=== PATIENT | female | born 1960 | race Caucasian/White ===

== ENCOUNTER → 2017-01-23 | Outpatient (CLI) | payer OTHER | END | disposition home or self-care (01) | LOC: C.PAPS 14:16 | PROVIDERS: ATTEND Family Medicine | DX: Z12.4 Encounter for screening for malignant neoplasm of cervix (principal) ==

== ENCOUNTER → 2017-01-30 | Outpatient (CLI) | payer OTHER ==
--- NOTE | 2017-02-06 12:52 | MAMMOGRAPHY REPORT ---
BILATERAL DIGITAL SCREENING MAMMOGRAM TOMOSYNTHESIS WITH CAD: 01/30/2017 CLINICAL HISTORY: Routine screening. Patient has no complaints. TECHNIQUE: Breast tomosynthesis in addition to standard 2D mammography was performed. Current study was also evaluated with a Computer Aided Detection (CAD) system. Bilateral CC and MLO 2-D and adriana synthesis images were obtained. COMPARISON: No prior exams were available for comparison. BREAST COMPOSITION: The tissue of both breasts is heterogeneously dense, which may obscure small ma sses. FINDINGS: No suspicious masses, calcifications, or areas of architectural distortion are noted in e ither breast. There has been no significant interval change compared to prior exams. Scattered bilat eral benign-appearing calcifications are not significantly changed. Note that the patient returned for a repeat right CC 2-D view on 02/05/2017 due to motion artifact on the initial view. IMPRESSION: ACR BI-RADS CATEGORY 2: BENIGN There is no mammographic evidence of malignancy. A 1 year screening mammogram is recommended. The p atient will receive written notification of the results. Approximately 10% of breast cancers are not detected with mammography. A negative mammographic repor t should not delay biopsy if a clinically suggestive mass is present. Sofía Jose M.D. ah/:02/05/2017 15:03:00 Medical Housekeeper: Genny PIERSON(Maryjane)(Francheska)(MARIANO), [facility] letter sent: Normal 1/2 BI-RADS Code: ACR BI-RADS Category 2: Benign
== END | disposition home or self-care (01) ==
LOC: C.MAMM 10:19
PROVIDERS: ATTEND Family Medicine
DX: Z12.31 Encounter for screening mammogram for malignant neoplasm of breast (principal)

== ENCOUNTER 2017-07-13 10:44 | Observation (INO) | payer BC, OTHER ==
[~2017-07-13] VITALS: Ht 162.6 cm; Wt 57.5 kg
--- NOTE | 2017-07-13 11:51 | DIAGNOSTIC IMAGING REPORT ---
CHEST ONE VIEW PORTABLE HISTORY: 57 years-old Female cp acute atypical chest pain COMPARISON: None available TECHNIQUE: Portable upright AP view the chest FINDINGS: Cardiomediastinal and hilar silhouettes are within normal limits. No pneumothorax, pleural effusion, or overt pulmonary edema. Subsegmental left basilar opacities are noted. Lungs are mildly hyperinflated. Atherosclerosis of the aorta. Bones are grossly intact. IMPRESSION: Subsegmental left basilar opacities suggest atelectasis or scarring. No acute cardiopulmonary process. The above report was generated using voice recognition software. It may contain grammatical, syntax or spelling errors. Electronically signed by: Nikolai Diaz M.D. 07/13/2017 11:50 AM Dictated Date/Time: 07/13/2017 11:49 AM
[2017-07-13 11:55] LABS: BASO % 0.4 %; BASO ABS # 0.02 K/uL (0-0.2); COMPLETE YES; EOS % 4.4 %; HEMATOCRIT 37.6 % (37-47); IG% 0.2 %; LYMPH % 14.6 %; LYMPH ABS # 0.69 K/uL (1.2-3.4); MEAN CORPUSCULAR HEMOGLOBIN 29.9 pg (25-34); MEAN CORPUSCULAR HGB CONC 34.3 g/dl (32-36); MEAN PLATELET VOLUME 10.2 fL (7.4-10.4); MONO % 10.6 %; NEUT % 69.8 %; PLATELET COUNT 207 K/uL (130-400); RED BLOOD COUNT 4.32 M/uL (4.2-5.4); WHITE BLOOD COUNT 4.73 K/uL (4.8-10.8)
[2017-07-13 12:05] LABS: PARTIAL THROMBOPLASTIN RATIO 1.3; PROTHROMBIN TIME (PATIENT) 10.6 SECONDS (9.0-12.0)
[2017-07-13 12:13] LABS: BUN/CREATININE RATIO 11.2 (10-20); CALCIUM 8.9 mg/dl (8.5-10.1); CREATININE 0.73 mg/dl (0.60-1.20); POTASSIUM 3.1 mmol/L (3.5-5.1)
[2017-07-13] MEDS ORDERED: POTASSIUM CHLORIDE 10 MEQ TABCR PO STA (12:14)
[2017-07-13] MEDS ORDERED: MAGNESIUM HYDROXIDE SUSP 30 ML UDC PO PRN (12:45)
[2017-07-13] MEDS ORDERED: ONDANSETRON INJ 2 MG/ML 2 ML VIAL IV PRN (12:45)
[2017-07-13] MEDS ORDERED: ALUMINUM/MAGNESIUM/SIMETH (MAALOX MAX) 30 ML UDC PO PRN (12:45)
[2017-07-13] MEDS ORDERED: POLYETHYLENE (MIRALAX) 17 GM PACK PO PRN (12:45)
[2017-07-13] MEDS ORDERED: ACETAMINOPHEN 325 MG TAB PO PRN (12:45)
--- NOTE | 2017-07-13 13:19 | History and Physical ---
History & Physical Date of Service Jul 13, 2017. History & Physical obs #[id number]
[2017-07-13] MEDS ORDERED: LIDOCAINE HCL 2% VISC SOLN 20 ML UDC PO ONE (13:30)
[2017-07-13] MEDS ORDERED: ALUMINUM/MAGNESIUM SUSP 30 ML UDC PO ONE (13:30)
[2017-07-13] MEDS ORDERED: RANITIDINE HCL 150 MG TAB PO ONE (13:30)
--- NOTE | 2017-07-13 13:36 | HISTORY & PHYSICAL EXAMINATION ---
DATE OF ADMISSION: 07/13/2017 CHIEF COMPLAINT: Chest pain. HISTORY OF PRESENT ILLNESS: The patient is a very pleasant 57-year-old female who notes she has had chest pain this morning. She notes most proximally that she woke up about 5:30, she had a fever. She had some epigastric discomfort, pressure, felt like indigestion, but she also felt a little in her left jaw, although she notes periodically through the years she has had left jaw pain off and on. However, it got her attention enough that she felt like she should come to the ER for further evaluation. She is pain free now. It is not entirely clear what took the pain away. She notes most relevantly that she is actually since Thursday felt flu-like with temps off and on up to about 102. She has been taking Tylenol all weekend, some chills, some headaches, some sinus pressure and then about 3:30 this morning she felt like her fever finally broke and she was feeling better but again she woke up about 5:30 febrile again and with chest pain again. She denies any new dyspnea on exertion. On directed questioning, she thinks back and vaguely but then positively relates slightly new dyspnea on exertion, but she has actually noted it for a few years. It is probably improving as she has had intentional weight loss and certainly she has had no new dyspnea on exertion, worsening dyspnea on exertion or fatigue. REVIEW OF SYSTEMS: Otherwise, negative except for as above. PAST MEDICAL HISTORY: None. MEDICATIONS: None. No herbals, no supplements. PAST SURGICAL HISTORY: Includes tubal in 1998. SOCIAL HISTORY: No tobacco. No significant alcohol, no drugs. 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 FAMILY HISTORY: Includes dad with peripheral vascular disease, stroke, black lung and hypertension. The earliest manifestation of his vascular disease she remembers is seen in his late 60s. Mom had diabetes, hypertension and coronary artery disease, noting that her first manifestation of her vascular disease was probably in her early 70s. ALLERGIES: None. PHYSICAL EXAMINATION: VITAL SIGNS: Temperature 36.8, pulse 94, respiratory rate 18, blood pressure 128/86, 97% on room air. GENERAL: She is awake, alert, oriented x3, pleasant, fatigued appearing but in no acute distress. HEENT: Normocephalic, atraumatic. Mucous membranes are moist. CARDIOVASCULAR: Regular without rubs, murmurs, or gallops. LUNGS: Clear to auscultation bilaterally. No rales, rhonchi, or wheezes with good effort. ABDOMEN: Soft, nondistended, nontender, no masses or organomegaly. EXTREMITIES: Without cyanosis, clubbing or edema. No calf tenderness. SKIN: Shows no rashes, no pallor or icterus. NEUROLOGIC: Shows cranial nerves II-XII to be grossly intact. Gross motor and sensory are intact. MUSCULOSKELETAL: Reveals no gross lesions. MENTAL STATE: Shows good recent and remote recall. Normal mood and affect. Good judgment and insight. LABORATORIES AND DIAGNOSTICS: Chest x-ray is clear. EKG is sinus rhythm without any significant ST changes. CBC shows a white count of 4.73, hemoglobin 12.9, platelets of 207. Basic metabolic panel with sodium 134, potassium 3.1, chloride 99, CO2 25, BUN 8, creatinine 0.73, calcium 8.9, glucose 91, troponin of less than 0.030. PT of 10.6, PTT of 35.0. ASSESSMENT AND PLAN: 1. Chest pain. This seems extremely likely to be indigestion. She carries essentially no cardiac risk factors, has very atypical symptoms and no exertional symptoms. However, she certainly very concerned about this and the ER felt that maybe she had a degree of ST changes. I will see what they are talking about with that, however, it is certainly not of significance, it is not a millimeter and more than anything it appears that her baseline drops before her QRS making the ST segment level. That said, because of the concern, we will observe her on telemetry, rule out myocardial infraction with serial cardiac enzymes x3 and check a stress echo in the morning provided her enzymes are negative. 2. Indigestion. This appears to be most likely what is going on, we will give her Maalox, viscous lidocaine and Zantac and then follow her closely. 3. Hyponatremia, hypokalemia. This is due to her poor p.o. intake due to her viral illness over the last several days. She has been supplemented with potassium. We will follow her clinically. She can have outpatient labs in the near future to follow up on her electrolytes. 4. Febrile illness, certainly because some influenza in the area. We will check a flu swab more for surveillance than anything. 5. Deep venous thrombosis prophylaxis, ambulation. MTDD
[2017-07-13 13:45] VITALS: O2SAT 97; Ht 162.6 cm; Wt 57.5 kg
[2017-07-13 14:14] VITALS: BP 117/82; PULSE 86; TEMP 36.7; O2SAT 97
[2017-07-13] MEDS ORDERED: IV FLUIDS COMPLETED PRN (14:30)
[2017-07-13 16:00] VITALS: O2SAT 98
--- NOTE | 2017-07-13 17:21 | EMERGENCY ROOM VISIT NOTE ---
History Report prepared by Alexys: Pola Ramirez Under the Supervision of: Dr. Del Bettencourt M.D. First contact with patient: 11:17 Chief Complaint: FLU LIKE SX Stated Complaint: CHEST PAIN,HEAD PAIN,JAW PAIN History of Present Illness The patient is a 57 year old female who presents to the Emergency Room with complaints of an episode of chest pressure that occurred around 6 hours ago. She says that she woke up with the pressure, and she also noticed left jaw pressure at the same time. The patient states that both her chest and left jaw pressure only lasted a few minutes. The patient adds that the discomfort radiated a bit to her left arm. She notes that the discomfort felt like indigestion but she had not recently eaten anything. The patient adds that for the past few days she has had flu-like symptoms, with a fever, chills, and headache. She says that her flu-like symptoms have been getting better, but she felt like she was getting a fever again around 0530 this morning. She notes that she saw Dr. Hendrickson (her family doctor) prior to arrival and was told that her temperature was 98.8. The patient was given 4 baby aspirin in the office. She had an EKG there which revealed some abnormalities so she was sent here for further evaluation. The patient says that she had a bit of the left jaw pressure in the office, but she has no discomfort or pain currently. She denies any sinus congestion, shortness of breath, sweating, nausea, lightheadedness, vomiting, diarrhea, leg swelling, or leg pain. The patient notes that she has no chronic medical conditions, but does have a family history of hypertension and heart disease. She says that both her parents had heart attacks in their 70s. The patient is a non-smoker. Source of History: patient Onset: 6 hours ago Position: chest Symptom Intensity: episode lasted a few minutes Quality: pressure Timing: other (episode) Associated Symptoms: + fevers, + chills, + headache, No SOB, No nausea, No vomiting, No diarrhea Note: Associated symptoms: Recent flu-like symptoms, which are resolving. Pressure radiated to left jaw and left arm. Denies sinus congestion, lightheadedness, sweating, leg swelling or leg pain. Review of Systems See HPI for pertinent positives & negatives. A total of 10 systems reviewed and were otherwise negative. Past Medical & Surgical Medical Problems: (1) Chest pain (2) No chronic diseases present Family History Diabetes mellitus FHx: gallbladder disease Heart disease Hypertension Kidney disease Lung disease Stroke Social History Smoking Status: Never Smoker Smokeless Tobacco Use: No Alcohol Use: none Occupation Status: unemployed Current/Historical Medications No Active Prescriptions or Reported Meds Allergies Coded Allergies: No Known Allergies (Unverified , 07/13/17) Physical Exam Vital Signs Date Time Temp Pulse Resp B/P (MAP) Pulse Ox O2 Delivery O2 Flow Rate FiO2 07/13/17 13:15 84 16 123/83 98 Room Air 07/13/17 12:12 86 07/13/17 12:06 85 16 112/77 96 Room Air 07/13/17 10:48 36.8 94 18 128/86 97 Room Air Physical Exam Constitutional: Vital signs reviewed. Eyes: Pupils are equal round reactive to light. Conjunctiva are noninjected. ENT: Pharynx is clear without erythema or exudate. Mucous membranes are moist. Neck supple without meningeal signs. Respiratory: Clear to auscultation bilaterally. Breath sounds are equal bilaterally. Cardiovascular: Regular rate and rhythm. No rubs or gallops. GI: Soft, nondistended and nontender. Bowel sounds are present. Musculoskeletal: No peripheral edema. No lower extremity tenderness. Integumentary: No cyanosis. Neurological: The patient is awake and alert. No focal deficits. Psychiatric: Normal affect. Medical Decision & Procedures ER Provider Diagnostic Interpretation: X-ray results as stated below per interpretation by me and the radiologist: CHEST ONE VIEW PORTABLE HISTORY: 57 years-old Female cp acute atypical chest pain COMPARISON: None available TECHNIQUE: Portable upright AP view the chest FINDINGS: Cardiomediastinal and hilar silhouettes are within normal limits. No pneumothorax, pleural effusion, or overt pulmonary edema. Subsegmental left basilar opacities are noted. Lungs are mildly hyperinflated. Atherosclerosis of the aorta. Bones are grossly intact. IMPRESSION: Subsegmental left basilar opacities suggest atelectasis or scarring. No acute cardiopulmonary process. The above report was generated using voice recognition software. It may contain grammatical, syntax or spelling errors. Electronically signed by: Nikolai Diaz M.D. 07/13/2017 11:50 AM Dictated Date/Time: 07/13/2017 11:49 AM Laboratory Results 07/13/17 11:40 Red Blood Count 4.32, Mean Corpuscular Volume 87.0, Mean Corpuscular Hemoglobin 29.9, Mean Corpuscular Hemoglobin Concent 34.3, Mean Platelet Volume 10.2, Neutrophils (%) (Auto) 69.8, Lymphocytes (%) (Auto) 14.6, Monocytes (%) (Auto) 10.6, Eosinophils (%) (Auto) 4.4, Basophils (%) (Auto) 0.4, Neutrophils # (Auto ) 3.30, Lymphocytes # (Auto) 0.69, Monocytes # (Auto) 0.50, Eosinophils # (Auto ) 0.21, Basophils # (Auto) 0.02 07/13/17 11:40 Test 07/13/17 11:40 07/13/17 11:45 White Blood Count 4.73 K/uL (4.8-10.8) Red Blood Count 4.32 M/uL (4.2-5.4) Hemoglobin 12.9 g/dL (12.0-16.0) Hematocrit 37.6 % (37-47) Mean Corpuscular Volume 87.0 fL (80-100) Mean Corpuscular Hemoglobin 29.9 pg (25-34) Mean Corpuscular Hemoglobin Concent 34.3 g/dl (32-36) Platelet Count 207 K/uL (130-400) Mean Platelet Volume 10.2 fL (7.4-10.4) Neutrophils (%) (Auto) 69.8 % Lymphocytes (%) (Auto) 14.6 % Monocytes (%) (Auto) 10.6 % Eosinophils (%) (Auto) 4.4 % Basophils (%) (Auto) 0.4 % Neutrophils # (Auto) 3.30 K/uL (1.4-6.5) Lymphocytes # (Auto) 0.69 K/uL (1.2-3.4) Monocytes # (Auto) 0.50 K/uL (0.11-0.59) Eosinophils # (Auto) 0.21 K/uL (0-0.5) Basophils # (Auto) 0.02 K/uL (0-0.2) RDW Standard Deviation 43.8 fL (36.4-46.3) RDW Coefficient of Variation 13.8 % (11.5-14.5) Immature Granulocyte % (Auto) 0.2 % Immature Granulocyte # (Auto) 0.01 K/uL (0.00-0.02) Prothrombin Time 10.6 SECONDS (9.0-12.0) Prothromb Time International Ratio 1.0 (0.9-1.1) Activated Partial Thromboplast Time 35.0 SECONDS (21.0-31.0) Partial Thromboplastin Ratio 1.3 Anion Gap 10.0 mmol/L (3-11) Est Creatinine Clear Calc Drug Dose 72.6 ml/min Estimated GFR () 105.2 Estimated GFR (Non- 90.8 BUN/Creatinine Ratio 11.2 (10-20) Calcium Level 8.9 mg/dl (8.5-10.1) Bedside Troponin I < 0.030 ng/ml (0-0.045) Laboratory results as reviewed by me. Medications Administered Medications (Trade) Dose Ordered Sig/Angel Route Start Time Stop Time Status Last Admin Dose Admin Potassium Chloride (Klor-Con M10) 40 meq NOW STAT PO 07/13/17 12:14 07/13/17 12:15 DC 07/13/17 12:44 40 MEQ ECG Indication: chest pain Rate (beats per minute): 85 Rhythm: normal sinus Findings: ST depression (V4-V6), no ectopy ED Course 1120: The patient was evaluated in room C3. A complete history and physical exam was performed. 1214: Ordered Klor-Con M10 40 meq PO. 1221: I reevaluated the patient and she is resting comfortably. I recommended hospitalization, and she agrees with that plan. The patient verbally expressed understanding and agreement of the treatment plan. The patient will be evaluated for further treatment. 1222: I spoke with Dr. Suarez - [facility] federal mediator. We discussed the patient and her results. He will evaluate the patient for further treatment. Medical Decision This is a 57-year-old female who presents with chest pain rating to her jaw and arm. Differential diagnosis includes unstable angina, SC, pleurisy, GERD, anxiety, pneumonia, pericarditis, myocarditis. I did perform a limited focused review of portions of the patient's old chart on the electronic medical record. The patient has had no recent pertinent visits to this hospital. I did evaluate the patient as noted above. The patient is here because she had an episode of chest discomfort which she describes as a pressure radiating to her jaw and arm. She had an EKG at her doctor's office which showed some ST depressions. She was sent here for further evaluation. She has been having some cold symptoms recently which have improved significantly. IV access was established. The patient was placed on a continuous cardiac tech. I did order and personally review the patient's 12-lead EKG and chest x-ray as described above. Her twelve-lead EKG does demonstrate ST depressions in leads V4 to V6. Patient is currently not having any chest discomfort. She did receive aspirin at her doctor's office. I did order and review the patient's blood work as noted in the electronic medical record. Troponin is negative. She does have hypokalemia. She was given oral potassium. I did reevaluate the patient. She denies having any discomfort at this time. I did recommend hospitalization because of her abnormal EKG and chest discomfort. I did discuss case with the hospitalist and employment case manager. Medication Reconcilliation Current Medication List: was personally reviewed by me Blood Pressure Screening Patient's blood pressure: Elevated blood pressure Consults Time Called: 1220 Consulting Physician: Dr. Daniela RONQUILLO federal mediator Returned Call: [address] Daniela RONQUILLO federal mediator. We discussed the patient and her results. He will evaluate the patient for further treatment. Impression Primary Impression: Acute chest pain Additional Impressions: Abnormal EKG Flu-like symptoms Hypokalemia Scribe Attestation The scribe's documentation has been prepared under my direct and personally reviewed by me in its entirety. I confirm that the note above accurately reflects all work, treatment, procedures, and medical decision making performed by me. Departure Information Dispostion Being Evaluated By Hospitalist Prescriptions No Active Prescriptions or Reported Meds Referrals Kathryn Hendrickson D.O. (PCP) Patient Instructions My [facility] Problem Qualifiers
[2017-07-13 19:30] VITALS: BP 113/88; PULSE 88; TEMP 36.7; O2SAT 95
[2017-07-13 19:45] LABS: CKMB/CK RATIO 1.4 (0-3.0)
[2017-07-13] MEDS: RANITIDINE HCL 150 MG TAB PO SCH (20:23)
[2017-07-13 23:37] VITALS: BP 114/80; PULSE 86; TEMP 37; O2SAT 96
[2017-07-14 03:21] LABS: BUN/CREATININE RATIO 17.2 (10-20); CALCIUM 8.8 mg/dl (8.5-10.1); CARBON DIOXIDE 27 mmol/L (21-32); CHLORIDE 105 mmol/L (98-107); CHOLESTEROL 151 mg/dl (0-200); CHOLESTEROL/HDL RATIO 3.1; CREATININE 0.83 mg/dl (0.60-1.20); GLUCOSE 89 mg/dl (70-99); HDL CHOLESTEROL 49 mg/dl; LDL CHOLESTEROL CALCULATED 74 mg/dl; POTASSIUM 4.2 mmol/L (3.5-5.1); SODIUM 139 mmol/L (136-145); TRIGLYCERIDES 139 mg/dl (0-150); VERY LOW DENSITY LIPOPROT CALC 28 mg/dl
[2017-07-14 03:34] LABS: BLOOD UREA NITROGEN 14 mg/dl (7-18)
[2017-07-14 03:40] VITALS: BP 119/79; PULSE 92; TEMP 36.8; O2SAT 95
[2017-07-14 07:57] VITALS: BP 115/77; PULSE 88; TEMP 36.8; O2SAT 95
[2017-07-14 08:00] VITALS: O2SAT 95
[2017-07-14] MEDS: RANITIDINE HCL 150 MG TAB PO SCH (10:32)
--- NOTE | 2017-07-14 10:42 | EXERCISE STRESS ECHO ---
*NOTICE TO RECEIVING REPUBLICAN AGENCY This information is strictly Confidential and protected under [place] law. [place] law prohibits you from making any further disclosure of this information unless further disclosure is expressly permitted by the written consent of the person to whom it pertains or is authorized by law. A general authorization for the release of medical or other information is not sufficient for this purpose. Hospital accepts no responsibility if the information is made available to any other person, INCLUDING THE PATIENT. Interpretation Summary * Name: ELTON LAINEZ Study Date: 07/14/2017 08:52 AM BP: 117/83 mmHg * Patient Location: 209 HR: 88 * : 1960 (M/d/yyyy) Gender: Female Height: 64 in * Age: 57 yrs Ethnicity: [place] Weight: 131 lb * Ordering Physician: Jaquan Suarez * Referring Physician: Kathryn Hendrickson D.O. * Performed By: Kanwal Gonzalez RDCS * * Reason For Study: CHEST PAIN * BSA: 1.6 m2 * -- Conclusions -- * Stress Echo: * 1. Negative stress echo for ischemia at 91 % MPHR. * 2. Negative exercise ECG for ischemia at 91 % MPHR. * 3. Appropriate blood pressure response to exercise. * 4. No arrhythmia. * 5. Study terminated due to hip pain. No chest pain reported. * 6. Fair exercise tolerance. * Echo: * 1. Normal left ventricular size and systolic function. EF 55-60%. No regional wall motion abnormalities. No left ventricular hypertrophy. Type 1 diastolic dysfunction. * 2. No significant valvular abnormalities. * 3. Normal estimated right ventricular systolic pressure; 22mmHg. * 4. No prior study available for comparison. Procedure Details * ECHOEX, CPT #[id number] Left Ventricle * The left ventricle is normal in size. * There is normal left ventricular wall thickness. * Left ventricular systolic function is normal. * The left ventricular ejection fraction increases normally with stress. The left ventricular end-systolic cavity size reduces post-stress (normal response). The left ventricular wall motion with stress is normal. * Resting wall motion: Normal. Stress wall motion: Appropriate increase in Left ventricular systolic function and decrease in cavity size. No stress induced segmental wall motion abnormalities. Right Ventricle * The right ventricle is normal in size and function. * The right ventricular systolic function is normal as assessed by tricuspid annular plane systolic excursion (TAPSE) (normal >1.5 cm). Atria * The left atrial size is normal. * Right atrial size is normal. * There is no evidence of atrial septal defect, but resolution does not allow assessment for a patent foramen ovale. Mitral Valve * The mitral valve leaflets appear normal. There is no evidence of stenosis, fluttering, or prolapse. * There is trace mitral regurgitation. Tricuspid Valve * The tricuspid valve is not well visualized, but is grossly normal. * There is no tricuspid stenosis. * There is trace tricuspid regurgitation. Aortic Valve * The aortic valve is trileaflet. * No hemodynamically significant valvular aortic stenosis. * No aortic regurgitation is present. Pulmonic Valve * The pulmonary valve is inadequately visualized, but the Doppler data is adequate for interpretation. * Trace pulmonic valvular regurgitation. Great Vessels * The aortic root is normal size. * Aortic arch of normal dimension. * Normal IVC size and inspiratory collapse. Pericardium * Trace pericardial effusion. Stress Parameters * NSR at 91 bpm. * Stress ECG: No ST changes. No arrhythmias. * Rest heart rate was '88' BPM. * Rest blood pressure was '117/83' * Maximum heart rate achieved was 148 bpm. * Maximum heart rate was 91 % of maximum age-predicted heart rate. * Maximum blood pressure was '170/84' * Total exercise time was '6:25' * Maximum exercise MET level achieved was '7.60' METS * Maximum treadmill speed was '3.40' miles per hour. * Maximum treadmill elevation was '14.00'% grade. * Exercise was terminated due to 'hip pain' * Normal blood pressure response to exercise. MMode 2D Measurements and Calculations IVSd 0.97 cm IVSs 1.5 cm LVIDd 3.9 cm LVIDs 2.5 cm LVPWd 0.98 cm LVPWs 1.4 cm IVS/LVPW 0.98 FS 37.2 % EDV(Teich) 67.8 ml ESV(Teich) 21.9 ml EF(Teich) 67.8 % EDV(cubed) 61.5 ml ESV(cubed) 15.2 ml EF(cubed) 75.2 % % IVS thick 54.6 % % LVPW thick 38.9 % LV mass(C)d 119.9 grams LV mass(C)dI 73.4 grams/m\S\2 LV mass(C)s 114.4 grams LV mass(C)sI 70.0 grams/m\S\2 SV(Teich) 46.0 ml SI(Teich) 28.1 ml/m\S\2 SV(cubed) 46.3 ml SI(cubed) 28.3 ml/m\S\2 Ao root diam 2.5 cm Ao root area 4.7 cm\S\2 LA dimension 2.5 cm LA/Ao 1.0 LVAd ap4 23.4 cm\S\2 LVLd ap4 7.0 cm EDV(MOD-sp4) 64.9 ml EDV(sp4-el) 66.4 ml LVAs ap4 14.2 cm\S\2 LVLs ap4 6.1 cm ESV(MOD-sp4) 29.8 ml ESV(sp4-el) 28.2 ml EF(MOD-sp4) 54.1 % EF(sp4-el) 57.5 % SV(MOD-sp4) 35.1 ml SI(MOD-sp4) 21.5 ml/m\S\2 SV(sp4-el) 38.1 ml SI(sp4-el) 23.3 ml/m\S\2 Doppler Measurements and Calculations MV E max guadalupe 63.8 cm/sec MV A max guadalupe 76.6 cm/sec MV E/A 0.83 MV dec time 0.13 sec Ao V2 max 121.7 cm/sec Ao max PG 5.9 mmHg Ao max PG (full) 0.79 mmHg LV V1 max PG 5.1 mmHg LV V1 max 113.2 cm/sec TV E max guadalupe 56.6 cm/sec TR max guadalupe 215.6 cm/sec RVSP(TR) 21.6 mmHg RAP systole 3.0 mmHg
--- NOTE | 2017-07-14 11:27 | Discharge Instructions ---
Discharge Instructions Date of Service Jul 14, 2017. Admission Reason for Admission: Chest Pain Discharge Discharge Diagnosis / Problem: Chest pain, non-cardiac Discharge Goals Goal(s): Decrease discomfort, Improve function Activity Recommendations Activity Limitations: resume your previous activity . Instructions / Follow-Up Instructions / Follow-Up Medications: no new medications Can use Tums as needed for any heartburn or indigestion. If heartburn becomes a regular occurrence please talk with your primary care doctor about PPI FOLLOW UP - no need for specific follow up since your testing was negative, as mentioned above, if your indigestion becomes more frequent then schedule an appointment Current Hospital Diet Patient's current hospital diet: Regular Diet Discharge Diet Recommended Diet: Regular Diet Pending Studies Studies pending at discharge: no Laboratory Results Lipid Panel Test 07/14/17 02:43 Range/Units Triglycerides Level 139 0-150 mg/dl Cholesterol Level 151 0-200 mg/dl HDL Cholesterol 49 mg/dl Cholesterol/HDL Ratio 3.1 LDL Cholesterol, Calculated 74 mg/dl Medical Emergencies . Who to Call and When: Medical Emergencies: If at any time you feel your situation is an emergency, please call 911 immediately. . Non-Emergent Contact Non-Emergency issues call your: Primary Care Provider if indigestion continues . . "Provider Documentation" section prepared by Jacob Mathis. . VTE Core Measure Inpt VTE Proph given/why not?: Treatment not indicated [place] Drug Monitoring Program Search Results: no issues identified
[2017-07-14 11:54] VITALS: BP 109/74; PULSE 111; TEMP 36.6; O2SAT 96
[2017-07-14 12:15] VITALS: BP 109/74; PULSE 111; TEMP 36.6; O2SAT 96
--- NOTE | 2017-07-14 12:22 | Discharge Summary ---
Discharge Summary Date of Service Jul 14, 2017. Discharge Summary Admission Date: Jul 13, 2017 at 13:22 Discharge Date: Jul 14, 2017 Discharge Disposition: Home Principal Diagnosis: Substernal chest pain, noncardiac Procedures: Echocardiogram 07/14/17 * -- Conclusions -- * Stress Echo: * 1. Negative stress echo for ischemia at 91 % MPHR. * 2. Negative exercise ECG for ischemia at 91 % MPHR. * 3. Appropriate blood pressure response to exercise. * 4. No arrhythmia. * 5. Study terminated due to hip pain. No chest pain reported. * 6. Fair exercise tolerance. * Echo: * 1. Normal left ventricular size and systolic function. EF 55-60%. No regional wall motion abnormalities. No left ventricular hypertrophy. Type 1 diastolic dysfunction. * 2. No significant valvular abnormalities. * 3. Normal estimated right ventricular systolic pressure; 22mmHg. * 4. No prior study available for comparison. CHEST ONE VIEW PORTABLE 07/13/17 FINDINGS: Cardiomediastinal and hilar silhouettes are within normal limits. No pneumothorax, pleural effusion, or overt pulmonary edema. Subsegmental left basilar opacities are noted. Lungs are mildly hyperinflated. Atherosclerosis of the aorta. Bones are grossly intact. IMPRESSION: Subsegmental left basilar opacities suggest atelectasis or scarring. No acute cardiopulmonary process. Medication Reconciliation Medication Profile: No Active Prescriptions or Reported Meds Discharge Exam The patient was seen and examined this morning. Pt reports doing well today, she has not had any residual chest pain or shortness of breath, pt tolerated the stress treadmill test without difficulty per her report. She denies any fever, chills or sweats. Eating and drinking well, no abd pain, n/v/d/c. She states she feels well and is anticipating going home. Discussion was held regarding her cardiac enzymes and how stress echocardiogram was normal . ROS: 6 point ROS reviewed and negative otherwise. Physical Exam: General Appearance: WD/WN, no apparent distress Eyes: PERRL, EOMI ENT: hearing grossly normal, pharynx normal Neck: supple, no JVD Respiratory/Chest: lungs clear, normal breath sounds, no respiratory distress, no accessory muscle use Cardiovascular: regular rate, rhythm, no edema, no murmur, normal peripheral pulses Abdomen / GI: normal bowel sounds, non tender, soft Extremities: no calf tenderness, no pedal edema Neurologic/Psychiatric: alert, normal mood/affect, oriented x 3 Skin: normal color, warm/dry Hospital Course HISTORY OF PRESENT ILLNESS: The patient is a very pleasant 57-year-old female who notes she has had chest pain this morning. She notes most proximally that she woke up about 5:30, she had a fever. She had some epigastric discomfort, pressure, felt like indigestion, but she also felt a little in her left jaw, although she notes periodically through the years she has had left jaw pain off and on. However, it got her attention enough that she felt like she should come to the ER for further evaluation. She is pain free now. It is not entirely clear what took the pain away. She notes most relevantly that she is actually since Thursday felt flu-like with temps off and on up to about 102. She has been taking Tylenol all weekend, some chills, some headaches, some sinus pressure and then about 3:30 this morning she felt like her fever finally broke and she was feeling better but again she woke up about 5:30 febrile again and with chest pain again. She denies any new dyspnea on exertion. On directed questioning, she thinks back and vaguely but then positively relates slightly new dyspnea on exertion, but she has actually noted it for a few years. It is probably improving as she has had intentional weight loss and certainly she has had no new dyspnea on exertion, worsening dyspnea on exertion or fatigue. PHYSICAL EXAMINATION: VITAL SIGNS: Temperature 36.8, pulse 94, respiratory rate 18, blood pressure 128/86, 97% on room air. GENERAL: She is awake, alert, oriented x3, pleasant, fatigued appearing but in no acute distress. HEENT: Normocephalic, atraumatic. Mucous membranes are moist. CARDIOVASCULAR: Regular without rubs, murmurs, or gallops. LUNGS: Clear to auscultation bilaterally. No rales, rhonchi, or wheezes with good effort. ABDOMEN: Soft, nondistended, nontender, no masses or organomegaly. EXTREMITIES: Without cyanosis, clubbing or edema. No calf tenderness. SKIN: Shows no rashes, no pallor or icterus. NEUROLOGIC: Shows cranial nerves II-XII to be grossly intact. Gross motor and sensory are intact. MUSCULOSKELETAL: Reveals no gross lesions. MENTAL STATE: Shows good recent and remote recall. Normal mood and affect. Good judgment and insight. Hospital Course: This is 57 yo F admitted with Chest pain for rule out on tele for observation Chest pain - Likely in the setting of recent viral illness - resolved - EKG reviewed and showed minimal to no changes from previous. - Cardiac biomarkers were trended and neg x 3 - Stress echo completed and showing -- Conclusions -- * Stress Echo: * 1. Negative stress echo for ischemia at 91 % MPHR. * 2. Negative exercise ECG for ischemia at 91 % MPHR. * 3. Appropriate blood pressure response to exercise. * 4. No arrhythmia. * 5. Study terminated due to hip pain. No chest pain reported. * 6. Fair exercise tolerance. * Echo: * 1. Normal left ventricular size and systolic function. EF 55-60%. No regional wall motion abnormalities. No left ventricular hypertrophy. Type 1 diastolic dysfunction. * 2. No significant valvular abnormalities. * 3. Normal estimated right ventricular systolic pressure; 22mmHg. * 4. No prior study available for comparison. Indigestion - Administered Maalox, viscous lidocaine and Zantac and then follow her closely with resolvement of sx - Pt reports having indigestion before but that it was worse with viral illness - pt was not tolerating PO intake and acid therefore was likely worse. Hyponatremia, hypokalemia. - due to her poor p.o. intake due to her viral illness over the last several days. - supplemented with potassium and eletrolytes have corrected. DVT ppx: ambulation CODE STATUS: FULL Disposition: From home, discharge today. Total Time Spent: Greater than 30 minutes This includes examination of the patient, discharge planning, medication reconciliation, and communication with other providers. Discharge Instructions Please refer to the electronic Patient Visit Report (Discharge Instructions) for additional information. Follow-Up Follow up with your Primary Care Provider within 1 week. Additional Copies To Kathryn Hendrickson D.O.
== END 2017-07-14 12:30 | disposition home or self-care (01) ==
LOC: C.EDB 10:47 → C.2E 13:22 → ENRESERV 13:29
PROVIDERS: ADMIT Family Medicine; ATTEND Internal Medicine
DX: R07.9 Chest pain, unspecified (principal); R94.31 Abnormal electrocardiogram [ECG] [EKG]; E87.6 Hypokalemia; K30 Functional dyspepsia; R69 Illness, unspecified; Z83.3 Family history of diabetes mellitus; Z82.49 Family history of ischemic heart disease and other diseases of the circulatory system; Z82.3 Family history of stroke

== ENCOUNTER → 2018-01-25 | Outpatient (CLI) | payer BC ==
--- NOTE | 2018-01-25 10:07 | DIAGNOSTIC IMAGING REPORT ---
L HIP UNILATERAL 2 VIEWS CLINICAL HISTORY: PAIN IN LEFT HIP COMPARISON: None. DISCUSSION: No acute fractures are visualized. There are osteoarthritic changes with joint space narrowing and subtle acetabular subchondral sclerosis. There is femoral neck buttressing. IMPRESSION: 1. Osteoarthritic changes with joint space narrowing and femoral neck buttressing 2. No acute fractures Electronically signed by: Aleksander Santiago M.D. 01/25/2018 10:05 AM Dictated Date/Time: 01/25/2018 10:05 AM
--- NOTE | 2018-01-25 10:09 | DIAGNOSTIC IMAGING REPORT ---
LEG LENGTH STUDY (WHOLE LEG) CLINICAL HISTORY: LEG LENGTH DISCREPANCY COMPARISON STUDY: No previous studies for comparison. FINDINGS: The left lower extremity as measured from the superior aspect the femoral head to the tibial plafond measures 868 mm. The right lower extremity as measured from the superior aspect of the femoral head to the tibial plafond measures 885 mm. IMPRESSION: The right lower extremity measures 17 mm longer than the left Electronically signed by: Aleksander Santiago M.D. 01/25/2018 10:08 AM Dictated Date/Time: 01/25/2018 10:06 AM
== END | disposition home or self-care (01) ==
LOC: C.RAD 09:33
PROVIDERS: ATTEND Family Medicine
DX: M25.552 Pain in left hip (principal); M21.751 Unequal limb length (acquired), right femur; M21.752 Unequal limb length (acquired), left femur

== ENCOUNTER → 2018-04-07 | Outpatient (CLI) | payer BC ==
--- NOTE | 2018-04-08 07:57 | MAMMOGRAPHY REPORT ---
BILATERAL DIGITAL SCREENING MAMMOGRAM TOMOSYNTHESIS WITH CAD: 04/07/2018 CLINICAL HISTORY: Routine screening. Patient has no complaints. TECHNIQUE: The study was acquired using full field digital technology and interpreted from soft copy. Breast tomosynthesis in addition to standard 2D mammography was performed. Current study was also ev aluated with a Computer Aided Detection (CAD) system. COMPARISON: Comparison is made to exam dated: 01/30/2017 mammogram - [facility]. Also outside prior mammograms dated 12/25/2015 and 02/01/2013. BREAST COMPOSITION: The tissue of both breasts is heterogeneously dense, which may obscure small mass es. FINDINGS: No suspicious masses, calcifications, or areas of architectural distortion are noted in either breast . There has been no significant interval change compared to prior exams. Scattered bilateral benign-a ppearing calcifications are not significantly changed. Bilateral asymmetries are stable. IMPRESSION: ACR BI-RADS CATEGORY 2: BENIGN There is no mammographic evidence of malignancy. A 1 year screening mammogram is recommended.( 019) The patient will receive written notification of the results. Some breast cancers are not detected with mammography. A negative mammographic report should not alicia y biopsy if a clinically suggestive mass is present. Sofía Jose M.D. ah/:04/07/2018 11:51:44 Center Medical Director: RT Sara(Maryjane)(M), [facility] letter sent: Normal 1/2 BI-RADS Code: ACR BI-RADS Category 2: Benign
== END | disposition home or self-care (01) ==
LOC: C.MAMM 09:09
PROVIDERS: ATTEND Family Medicine
DX: Z12.31 Encounter for screening mammogram for malignant neoplasm of breast (principal)

== ENCOUNTER → 2018-04-23 | Outpatient (CLI) | payer BC ==
--- NOTE | 2018-04-23 18:02 | DIAGNOSTIC IMAGING REPORT ---
LUMBAR SPINE MIN 4 VIEWS CLINICAL HISTORY: Left hip pain. COMPARISON: None FINDINGS: Alignment of the lumbar spine is anatomic. Vertebral body heights are maintained. There is no fracture or suspicious lesion. Disc spaces are preserved. There is mild endplate osteophytosis. There is moderate multilevel facet arthrosis within the lower lumbar spine. Sacroiliac joints are intact. The bowel gas pattern is normal IMPRESSION: 1. No acute lumbar spine fracture. 2. Preserved disc spaces with mild multilevel endplate osteophytosis. 3. Moderate multilevel facet arthrosis. Electronically signed by: Savage Leyva M.D. 04/23/2018 6:01 PM Dictated Date/Time: 04/23/2018 6:00 PM
== END | disposition home or self-care (01) ==
LOC: C.RDSM 16:40
PROVIDERS: ATTEND Family Medicine
DX: M25.552 Pain in left hip (principal)

== ENCOUNTER 2021-03-27 05:17 | Observation (INO) ==
--- NOTE | 2021-02-13 12:14 | PAT Medication Instructions ---
Medication Instructions Date of Service February 13, 2021 Home Medications Medication Instructions Recorded estradiol 1 g VAGINAL .COMPLEX #42.5 g 07/23/20 ascorbic acid (vitamin C) 500 mg tablet 500 mg PO QAM cholecalciferol (vitamin D3) 125 mcg (5,000 unit) capsule 125 mcg PO QAM magnesium 250 mg tablet 250 mg PO QAM multivitamin 1 tab PO QAM estradiol 1 g VAGINAL .COMPLEX naproxen sodium 220 mg capsule 220 mg PO BID calcium carbonate 600 mg calcium (1,500 mg) tablet 600 mg PO QAM Continue as directed estradiol 1 g VAGINAL .COMPLEX ASK your surgeon for instructions naproxen sodium 220 mg capsule 220 mg PO BID DO NOT take the morning of surgery ascorbic acid (vitamin C) 500 mg tablet 500 mg PO QAM cholecalciferol (vitamin D3) 125 mcg (5,000 unit) capsule 125 mcg PO QAM magnesium 250 mg tablet 250 mg PO QAM multivitamin 1 tab PO QAM calcium carbonate 600 mg calcium (1,500 mg) tablet 600 mg PO QAM Other Notes If you have any questions please call us at [phone] or [phone] or [phone] or [phone]
--- NOTE | 2021-02-14 10:52 | Anesthesiology Consultation ---
Date of Service February 14, 2021 Assessment & Plan (1) Encounter for pre-operative examination: COVID Status: As of 02/14 assessment, patient denies travel to endemic area, known exposure/sick contacts, or symptoms of COVID19. Patient advised to adhere to social distancing guidelines, wear a mask in public and avoid large crowds or unnecessary travel in the 2 weeks leading up to surgery. Preoperative COVID19 testing to be completed prior to surgery per surgeon's arrangements (03/25). Patient encouraged to be extra cautious/conscientious with COVID precautions between COVID testing and surgery. Pt is vaccinated for COVID with J+J vaccine. Chart Review Chart Review: Acceptable Risk for Surgery and Patient seen in Pre Admission Testing Teaching & Discussion Instructed NPO after midnight before surgery, except medications with 15 cc of water. Medication instructions provided according to the PAT guidelines. History Surgery Operation Date: 03/27/21 07:15 Proposed Procedures p Right Total Hip Arthroplasty - Alexey Pérez MD Height/Weight Height: 5 ft 3 in Weight: 59.3 kg Allergies Allergy/AdvReac Type Severity Reaction Status Date / Time No Known Allergies Allergy Verified 02/12/21 09:03 Medications Home Medications Medication Instructions Recorded Confirmed Last Taken ascorbic acid (vitamin C) 500 mg 500 mg PO QAM 07/20/20 02/12/21 Unknown tablet cholecalciferol (vitamin D3) 125 125 mcg PO QAM 07/20/20 02/12/21 Unknown mcg (5,000 unit) capsule magnesium 250 mg tablet 250 mg PO QAM 07/20/20 02/12/21 Unknown multivitamin 1 tab PO QAM 07/20/20 02/12/21 Unknown estradiol 1 g VAGINAL .COMPLEX #42.5 g 07/23/20 02/12/21 Unknown naproxen sodium 220 mg capsule 220 mg PO BID 11/07/20 02/12/21 Unknown calcium carbonate 600 mg calcium 600 mg PO QAM 11/22/20 02/12/21 Unknown (1,500 mg) tablet Past Medical History Medical History Arthritis Bilateral hip joint arthritis Idiopathic polyneuropathy feet and toes, follows with Dr. Sanchez Lumbosacral radiculopathy Postmenopausal atrophic vaginitis Prediabetes diet control Thyroid nodule benign Exercise / Class Metabolic Activity II 4-5 Yardwork/Stairs/Walk up hill Past Family History Family History Son Anxiety Depression Father Stroke Hypertension Heart disease Mother Diabetes Hypertension Heart disease Sister Endometriosis Parkinsonian syndrome Other Dyslipidemia Denies family history of Ovarian cancer Prostate cancer Myocardial infarction Breast cancer Colorectal cancer Past Surgical History Surgical History History of colonoscopy S/P tubal ligation [place] teeth extracted Past Anesthesia History No Hx of Anesthesia Complications and No Family Hx of Anesthesia Complications History of PONV No Hx of PONV and Hx of Motion Sickness (sea sick) Social History Smoking Status: Never smoker Do You Dip or Chew Tobacco: No Hx Alcohol Use: Yes Alcohol type: wine alcohol intake frequency: holidays/special occasions only Hx Substance Use: No substance use type: does not use Review of Systems Pt denies any recent chest pain, shortness of breath, palpitations, cough, fever, URI, or uncontrolled acid reflux. Physical Exam Vital Signs BP: 121/82 P: 75bpm SPO2: 99% RA T: 98.6 F R: 16 ENMT Mouth: + dental restorations (few crowns on molars); no chipped teeth and no loose teeth Thyromental Distance: < 3.5 Finger Breadths (3) Mallampati Class: I Neck normal visual inspection and + limited neck extension Respiratory normal respiratory effort, lungs clear to auscultation Cardiovascular RRR, no murmur, no edema Lab Results Anesthesia Preop Results Results Anesthesia Widget: WBC 6.44 K/uL (4.8-10.8) 02/14/21 Hgb 12.1 g/dL (12.0-16.0) 02/14/21 Hct 36.7 % (37-47) L 02/14/21 Plt 353 K/uL (130-400) 02/14/21 Na 137 mmol/L (136-145) 02/14/21 K 4.0 mmol/L (3.5-5.1) 02/14/21 Cl 104 mmol/L (98-107) 02/14/21 CO2 27 mmol/L (21-32) 02/14/21 BUN 15 mg/dl (7-18) 02/14/21 Creat 0.58 mg/dl (0.6-1.2) L 02/14/21 Glucose Level 90 mg/dl (70-99) 02/14/21 PT 9.8 Seconds (9.0-12.0) 02/14/21 PTT 27.1 Seconds (21.0-31.0) 02/14/21 INR 1.0 (0.9-1.1) 02/14/21 Blood Type A Negative 02/14/21 Antibody Screen NEGATIVE 02/14/21 Testing Electrocardiogram Date: 02/14/21 Findings: + NSR @ (67bpm) Right atrial enlargement. No significant change from 07/13/17. Chest X-Ray Date: 02/14/21 Findings: + NAD Stress Test Date: 07/14/17 Negative exercise stress echo for ischemia at 91% MPHR. Appropriate blood pressure response to exercise. No arrhythmia. Study terminated due to hip pain. No chest pain reported. Fair exercise tolerance. Echo: Normal LV size and systolic function with EF 55-60%. No regional wall motion abnormalities. No LVH. Type I diastolic dysfunction. No significant valvular abnormalities. Normal estimated RVSP at 22 mmHg. No prior study available for comparison.
--- NOTE | 2021-03-23 10:45 | History and Physical Report ---
CHIEF COMPLAINT: Bilateral hip pain and discomfort, right side greater than left. HISTORY OF PRESENT ILLNESS: The patient is a 61-year-old female who presents for surgical treatment of her right hip. She has got a long history of bilateral hip pain and discomfort, the right side a bit worse than the left. She initially saw Dr. Ley. She subsequently had been treated here. We did have an injection into her hip, which helped a little bit. She continues to be bothered by p ersistent groin pain. She has difficulty putting her shoes and socks on. She limps more as the day goes on. She would like to have both hips fixed, but would like to start on the right one as it is b othering her most. PAST MEDICAL HISTORY: Significant for, 1. Bilateral lower extremity leg numbness of unclear etiology, followed by a neurologist. 2. Arthritis. PAST SURGICAL HISTORY: Tubal ligation. ALLERGIES: None. CURRENT MEDICATIONS: 1. Aleve. 2. Vitamin C. 3. Vitamin D. 4. Magnesium. 5. Calcium. SOCIAL HISTORY: A 61-year-old female. 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 She is relative ly healthy. Does not smoke. No significant alcohol intake. FAMILY HISTORY: Noncontributory. REVIEW OF SYSTEMS: Negative for diabetes, neurologic problems, vascular problems or bleeding disorde rs. She does have this numbness in her lower extremities of unclear etiology. No history of DVT or PE. PHYSICAL EXAMINATION: GENERAL: Physical examination shows a pleasant, healthy, middle-aged female. Looks to be in good he alth. HEENT: Benign. NECK: Supple. No lymphadenopathy. LUNGS: Clear to auscultation. HEART: Regular rate and rhythm. ABDOMEN: Soft, nontender, nondistended. EXTREMITIES: Grossly neurovascularly intact except as follows. Examination of the right hip reveals the patient walks with a bit of a limp. Examination of the right hip reveals a very stiff hip. She can internally rotate to neutral at best, which recreates pain. Negative straight leg raise. She i s neurologically intact. No knee effusion. IMAGING DATA: X-rays of the right hip reveal advanced right hip DJD. She has complete loss of her s uperior joint space. She has got flattening of the femoral head and cystic changes on both sides of the joint. She has got similar, but less severe disease on the left side. ASSESSMENT: A 61-year-old female with advanced bilateral hip degenerative joint disease, right side more symptomatic and more advanced than the left. She has failed conservative treatment and would li ke to proceed with right hip replacement. PLAN: We will take her to the operating room and do a right total hip replacement. The risks and be nefits of this procedure were explained to the patient to include, but not limited to, DVT, PE, , infection, neurological injury, vascular injury, bleeding problem, pain, limited range of motion, s tiffness, failure to relieve her symptoms, incomplete relief of symptoms, need for further surgery in the future, fracture, leg length inequality, nerve palsy, dislocation, etc. The patient understands and desires to proceed. Informed consent was obtained. We will likely lengthen this leg to some degree due to the loss of cartilage. We can equalize the ot her leg when it is time to do her surgery on that side. We will do the best we can to make them equa l at the end. As far as discharge plans, she is planning to be discharged to home with home health. Job ID: [id number]
[2021-03-27] MEDS ORDERED: FAMOTIDINE 20 MG TAB PO SCH (06:00)
[2021-03-27] MEDS ORDERED: LR 60ML/HR IV SCH (06:00)
[2021-03-27] MEDS ORDERED: TRANEXAMIC ACID 1,000 MG **IV Pre-op IV SCH (06:00)
[2021-03-27] MEDS ORDERED: GABAPENTIN 600 MG DOSE PO SCH (06:00)
[2021-03-27] MEDS ORDERED: METOCLOPRAMIDE HCL 10 MG TABLET PO SCH (06:00)
[2021-03-27] MEDS ORDERED: LR 500ML BOLUS, THEN 15ML/HR IV SCH (06:00)
[2021-03-27] MEDS ORDERED: Scopolamine 1 MG TDSY TD SCH (06:00)
[2021-03-27] MEDS ORDERED: ACETAMINOPHEN 500 MG TAB PO SCH (06:00)
[2021-03-27] MEDS ORDERED: ceFAZolin 2,000 MG/15 ML IV PUSH IV ONE (06:21)
[2021-03-27] MEDS ORDERED: BUPIVACAINE 0.5 % 5 MG/1 ML PF 10ML VIAL ONE (06:22)
[2021-03-27] MEDS ORDERED: BUPIVACAINE/EPINEPHRINE 0.5% MPF 1:200,000 30 ML VIAL ONE (06:28)
[2021-03-27] MEDS ORDERED: ATROPINE SULFATE 0.1 MG/ML 10ML SYR IV PRN (06:31)
[2021-03-27] MEDS ORDERED: fentaNYL citrate 100 MCG/2 ML VIAL IV PRN (06:31)
[2021-03-27] MEDS ORDERED: ePHEDrine sulfate 50 MG/ML AMP IV PRN ×2 (06:31→07:17)
[2021-03-27] MEDS ORDERED: ONDANSETRON INJ 2 MG/ML 2 ML VIAL IV PRN ×2 (06:31→07:17)
[2021-03-27] MEDS ORDERED: MIDAZOLAM HCL 1 MG/ML 2ML VIAL ONE (06:47)
[2021-03-27] MEDS ORDERED: fentaNYL citrate 100 MCG/2 ML VIAL ONE (06:47)
[2021-03-27] MEDS ORDERED: MoRPHine SULFATE PF 1 MG/ML 10 ML AMP/VIAL ONE (06:49)
--- NOTE | 2021-03-27 06:53 | History & Physical Bridge Note ---
Date of Service March 27, 2021 History & Physical Bridge Note I have examined the patient, reviewed the History & Physical and in the interval since the performance of the History & Physical I have noted the following changes of clinical significance: no changes noted
[2021-03-27] MEDS ORDERED: NALBUPHINE HCL INJ 10 MG/ML AMP IV PRN (07:17)
[2021-03-27] MEDS ORDERED: PROMETHAZINE HCL 6.25 MG in SODIUM CHLORIDE 0.9% 50 ML IV PRN (07:17)
[2021-03-27] MEDS ORDERED: NALOXONE HCL 1 MG in SODIUM CHLORIDE 0.9% 1000ML 1,000 ML IV PRN (07:17)
[2021-03-27] MEDS ORDERED: diphenhydrAMINE 50 MG/ML VIAL IV PRN (07:17)
[2021-03-27] MEDS ORDERED: MoRPHine SULFATE 2 MG/ML CARP IV PRN (07:17)
[2021-03-27] MEDS ORDERED: NALOXONE HCL 0.4 MG/1 ML VIAL/CARP IV PRN ×2 (07:17→09:44)
[2021-03-27] MEDS ORDERED: NALOXONE HCL 0.08 MG in SYRINGE 1.8 ML IV PRN (07:17)
[2021-03-27] MEDS ORDERED: LACTATED RINGER'S 500 ML IV PRN (07:17)
[2021-03-27] MEDS ORDERED: MoRPHine SULFATE PF 1 MG/ML 10 ML AMP/VIAL INT SPINAL ONE (07:17)
[2021-03-27] MEDS ORDERED: NO NARCOTICS OR SEDATIVES SCH (07:30)
[2021-03-27] MEDS ORDERED: SODIUM CHLORIDE 0.9% 1000ML 1,000 ML IV SCH ×2 (07:30→09:44)
[2021-03-27] MEDS ORDERED: DC INTRASPINAL MORPHINE SCH (07:30)
[2021-03-27] MEDS ORDERED: LIDOCAINE 2% 2 ML VIAL/AMP(20MG/ML) INFIL ONE (07:36)
[2021-03-27] MEDS ORDERED: PROPOFOL IV EMULSION 10 MG/ML 20 ML VIAL IV ONE (07:36)
--- NOTE | 2021-03-27 08:33 | Operative Report ---
Post Operative Report Pre & Post Diagnosis Operation Date: 03/27/21 07:00 Pre-Op Diagnosis: Right Hip Degenerative Joint Disease Post-Op Diagnosis: Right Hip Degenerative Joint Disease I identified the patient and participated in the time-out.: Yes Procedure Operation Date: 03/27/21 07:00 Actual Procedures p Right Total Hip Arthroplasty, Uncemented(Right) - Alexey Pérez MD Surgeon Alexey Pérez MD Temperature Inspector ARUN Bernal Estimated Blood Loss 200 Findings Consistent with Post-Op Diagnosis Operative findings were advanced right hip DJD. She had extensive grade 4 [id number] disease the femoral head and acetabulum. She had a deficient posterior/superior wall the acetabulum. Moderate-sized joint effusion. Fluids 1200 cc Specimens Right femoral head sent for pathology. Drains None. Anesthesia Type Spinal MAC Complications None Disposition Accompanied Patient To Recovery: Yes Indications Patient is a 61-year-old female has had a several year history of gradually progressing bilateral hip pain discomfort right side greater than left patient been through extensive conservative treatment which became less successful over time. X-rays show advanced right hip DJD. She elected proceed with surgical treatment. She did have a fairly dysplastic acetabulum as well with deficient superior and posterior wall. Description of Procedure Operative implants consist of: 1. Biomet G7 size 50 mm acetabular shell. 2. 6.5 cancellous acetabular screws 135 mm length 120 mm length. 3. [place] hole building admin. 4. Highly cross-linked polyethylene liner with a 50 mm outer diameter and 36 mm inner diameter. 5. Natasha Corail size 11 KLA short neck femoral stem with 125 degree angle. 6. +5/36 mm ceramic articular ball. The patient was taken to the operating, identified, and placed on the operating table supine position but all contact areas were properly padded. IV antibiotics tried by anesthesia team. A spinal anesthetic and been implemented holding area. Gar catheter was placed in sterile fashion. The patient then placed in the left lateral decubitus position. Axillary roll was placed. A Stulberg hip positioner was used for positioning. The right hip and leg were then prepped and draped in usual sterile fashion. A posterior lateral approach to the right hip was then performed to a curvilinear incision centered over the greater trochanter. Sharp dissection was got through subcutaneous this down to the IT band gluteal fascia the IT band gluteal fascia were incised longitudinally in line with skin incision. The underlying greater bursa was excised. The piriformis and external rotators were tagged and taken off the posterior aspect hip joint capsule. Great care was taken throughout the procedure protect the sciatic nerve at all times. A posterior capsulotomy was then performed leaving a large flap for later repair. The hip was internally rotated and dislocated. The femoral neck osteotomy cut was made with Final Cut 12 mm above the lesser trochanter. Femoral head was removed and sent for pathology. The femur was retracted anteriorly. Attention drawn the acetabulum. The acetabular labrum was excised per the pulmonary fat was excised. Sequential reaming the acetabular was then performed begin with size 43 and progressing up to 49. I did reamed some with a 50 reamer. A 50 mm Biomet G7 acetabular shell was then placed in about 40 degrees lateral opening and 20 degrees of anteversion. Was fixed with two 6.5 cancellous acetabular screws. Trial liner was placed. An anterior osteophyte was removed. Attention drawn the femur. The proximal femur was entered with a cookie-cutter followed by canal finder. I then broached begin the size 8 and progressing up to 11. Got excellent fit at 11. I then trialed the hip and the +5 articular ball with a short neck seem to fit most appropriately. When I use a standard neck the soft tissue tension just seemed too tight. Leg lengths seem equal with these implants. The hip was fully stable. Attention drawn toward placed in the permanent implants. All trial implants were removed. An apex hole building admin was placed but highly cross-linked polyethylene liner was placed. A DePuy size 11 KLA femoral stem was impacted in position. +5/36 mm ceramic articular ball was placed. Hip was located and found to be stable. Attention drawn toward closing. The wound was irrigated scope soft pulsatile lavage solution. I did inject loca lly with the 60 cc of half percent Marcaine with epinephrine. The posterior capsule and external rotators then repaired through drill holes in the posterior trochanter with #2 Tycron suture. The IT band gluteal fascia then closed in 1 PDS suture in running fashion for subcutaneous tissue then closed with 2 layers of the deep layer #1 Vicryl suture subcutaneous tissues with 2-0 Dexon suture in a buried interrupted fashion. Skin was closed with skin latesha. Leg was then cleaned and dried a sterile dressing both Xeroform, 4 x 4's, sterile ABD pad and foam tape was applied. The patient then transferred to the recovery room in stable condition. Patient tolerated procedure well and there were no complications. Mehdi Bernal, my physician library technical assistant, was present for the entire procedure. His assistance was essential and required for appropriate patient positioning, prepping and draping, surgical exposure, performing the technical details of the operation, placement the implants, closure of the wound, and placement of the sterile bandage. I attest to the content of the Intraoperative Record and any orders documented therein. Any exceptions are noted below.
--- NOTE | 2021-03-27 09:04 | XRay Report ---
XR hip 1V RT w pelvis CLINICAL HISTORY: Postoperative evaluation. COMPARISON: Right hip radiographs February 14, 2021. FINDINGS: Alignment of the total right hip arthroplasty is anatomic. There is no periprosthetic frac ture or unexpected radiopaque foreign body. There are skin latesha. Tubal ligation clips are incident ally noted. There is severe joint space narrowing of the left hip. Subchondral lucency within the lef t humeral head likely reflects subchondral cystic change. Avascular necrosis could appear similar alt federico is considered less likely. IMPRESSION: Expected findings following total right hip arthroplasty. ACT 112: Negative or not required by law. Electronically signed by: Savage Leyva M.D. 03/27/2021 9:02 AM
[2021-03-27] MEDS ORDERED: MAGNESIUM HYDROXIDE SUSP 30 ML UDC PO PRN (09:44)
[2021-03-27] MEDS ORDERED: MULTIVITAMIN TAB PO SCH (09:44)
[2021-03-27] MEDS ORDERED: bisacodyL 10 MG SUPP PR PRN (09:44)
[2021-03-27] MEDS ORDERED: ALUMINUM/MAGNESIUM SUSP 30 ML UDC PO PRN (09:44)
[2021-03-27] MEDS: CALCIUM 600MG + VIT D 400 IU TAB PO SCH (10:31)
[2021-03-27] MEDS: ASPIRIN 81 MG ECTAB PO SCH ×2 (10:31→19:32)
[2021-03-27] MEDS: MAGNESIUM OXIDE 400 MG TAB PO SCH (10:31)
[2021-03-27] MEDS: ASCORBIC ACID 500 MG TAB PO SCH (10:31)
[2021-03-27] MEDS: CHOLECALCIFEROL 1,000 UNITS 25 MCG TAB PO SCH (10:31)
[2021-03-27] MEDS: MULTIVITAMIN TAB PO SCH (10:31)
[2021-03-27] MEDS: DOCUSATE SODIUM 100 MG CAP PO SCH ×2 (10:31→19:31)
--- NOTE | 2021-03-27 13:07 | Anesthesiology Progress Note ---
Date of Service March 27, 2021 Anesthesia Post Procedure Vital Signs Vital Signs: Temp Pulse Pulse Resp BP Pulse Ox 03/27/21 12:45 36.4 C L 65 18 108/74 98 03/27/21 11:45 76 16 103/67 97 03/27/21 10:45 18 97 03/27/21 10:15 86 16 116/80 94 03/27/21 09:45 16 97 03/27/21 09:44 36.4 C L 86 16 115/75 97 03/27/21 09:24 36.1 C L 81 14 111/77 97 03/27/21 09:15 82 12 108/71 96 03/27/21 09:05 82 20 102/66 95 03/27/21 08:55 89 20 113/70 96 03/27/21 08:45 87 14 116/73 94 03/27/21 08:35 90 20 108/66 98 03/27/21 08:25 97 H 15 117/61 99 03/27/21 08:19 36.2 C L 97 H 14 118/62 99 03/27/21 05:30 36.9 C 84 16 133/90 98 Transfer of Care Handoff Completed per policy Notes Mental Status: alert / awake / arousable and participated in evaluation Patient Amnestic to Procedure: Yes Nausea / Vomiting: adequately controlled Pain: adequately controlled Airway Patency, RR, SpO2: stable & adequate BP & HR: stable & adequate Hydration State: stable & adequate Neuraxial Anesthesia: was administered and sensory block is resolving Anesthetic Complications: no major complications apparent and Pt Satisfied with anesthetic care
[2021-03-27] MEDS ORDERED: TRANEXAMIC ACID / 0.7% NACL 1,000 MG/100 ML BAG IV SCH (14:30)
[2021-03-27] MEDS: ceFAZolin 1000MG 1,000 MG/7.5 ML SYR IV SCH ×2 (14:57→21:07)
[2021-03-27] MEDS: ACETAMINOPHEN 500 MG TAB PO SCH ×2 (14:57→19:32)
[2021-03-27] MEDS: Scopolamine CHECK PATCH PLACEMENT SCH ×2 (16:14→23:06)
[2021-03-27] MEDS ORDERED: SENNA 8.6 MG TAB PO SCH (21:00)
[2021-03-27] MEDS: KETOROLAC 30 MG/ML VIAL IV SCH (21:07)
[2021-03-28] MEDS ORDERED: HYDROmorphone INJ 0.5 MG/0.5 ML SYR IV PRN (01:17)
[2021-03-28] MEDS ORDERED: METOCLOPRAMIDE HCL INJ 5 MG/ML 2 ML VIAL IV PRN (01:17)
[2021-03-28] MEDS ORDERED: ONDANSETRON INJ 2 MG/ML 2 ML VIAL IV PRN (01:17)
[2021-03-28] MEDS ORDERED: diphenhydrAMINE Capsule 25 MG CAP PO PRN (01:17)
[2021-03-28] MEDS: traMADol HCL 50 MG TABLET PO PRN ×2 (02:14→09:11)
[2021-03-28] MEDS: ACETAMINOPHEN 500 MG TAB PO SCH (06:23)
[2021-03-28 07:13] LABS: Basophils # (auto) 0.01 K/uL (0-0.2); Basophils % (auto) 0.1 %; Eosinophils # (auto) 0.06 K/uL (0-0.5); Eosinophils % (auto) 0.7 %; Hematocrit (blood only) 31.3 % (37-47); Hemoglobin 10.5 g/dL (12.0-16.0); Immature Granulocytes # (auto) 0.01 K/uL (0.00-0.02); Immature Granulocytes % (auto) 0.1 %; Lymphocytes # (auto) 0.61 K/uL (1.2-3.4); Lymphocytes % (auto) 7.3 %; Mean Corpuscular Hemoglobin 29.5 pg (25-34); Mean Corpuscular Hgb Conc 33.5 g/dL (32-36); Mean Corpuscular Volume 87.9 fL (80-100); Mean Platelet Volume 10.8 fL (7.4-10.4); Monocytes # (auto) 0.93 K/uL (0.11-0.59); Monocytes % (auto) 11.2 %; Neutrophils # (auto) 6.71 K/uL (1.4-6.5); Neutrophils % (auto) 80.6 %; Platelet Count 278 K/uL (130-400); RDW Coefficient of Variation 14.7 % (11.5-14.5); RDW Standard Deviation 47.4 fL (36.4-46.3); Red Blood Count 3.56 M/uL (4.2-5.4); White Blood Count 8.33 K/uL (4.8-10.8)
[2021-03-28] MEDS: KETOROLAC 30 MG/ML VIAL IV SCH (07:22)
[2021-03-28] MEDS: Scopolamine CHECK PATCH PLACEMENT SCH (07:26)
[2021-03-28 07:36] LABS: BUN Creatinine Ratio 25.7 (10-20); Calcium 8.4 mg/dl (8.5-10.1); Creatinine Clr Calc Pharmacy 92.8 ml/min; Est GFR (African American) 118.7 ml/min; Est GFR (Non-African American) 102.4 ml/min; Potassium 3.7 mmol/L (3.5-5.1)
[2021-03-28] MEDS ORDERED: dexAMETHasone 10 MG in SYRINGE 0 ML IV SCH (08:00)
--- NOTE | 2021-03-28 08:43 | Progress Notes ---
DATE OF SERVICE: 03/28/2021. SUBJECTIVE: A 61-year-old female postop day 1 from right hip replacement. She is doing pretty well. Had a pretty reasonable night. No chest pain or shortness of breath. Not feeling dizzy or lighthe aded. OBJECTIVE: VITAL SIGNS: Temperature is 36.9. Vital signs stable. PHYSICAL EXAMINATION. GENERAL: Shows a pleasant middle-aged female. She is sitting up in bed, looks pretty comfortable th is morning. LUNGS: Clear to auscultation. HEART: Regular rate and rhythm. ABDOMEN: Soft, nontender, nondistended. EXTREMITIES: Grossly neurovascularly intact except as follows. Examination of the right lower extremity reveals the leg lengths to be equal. Dressing is clean, dry and intact. Thigh is soft and supple. Hip is located. She is neurologically intact. LABORATORY DATA: Hemoglobin 10.5, hematocrit 31.3. Electrolytes are stable. ASSESSMENT: A 61-year-old female postop day 1 from right hip replacement, doing pretty well. Pain is controlled. Hip is located. She is neurologically intact. PLAN: 1. DVT prophylaxis include thigh-high TEDs, SCDs, and aspirin twice a day. 2. PT, OT, weightbear as tolerated. Right total hip protocol. 3. Pain control, doing pretty well with current pain regimen. 4. Disposition: Plan to discharge to home with some home health once adequately recovered, medicall y stable, and getting around safely and pain controlled. Job ID: [id number]
[2021-03-28] MEDS: ASCORBIC ACID 500 MG TAB PO SCH (09:06)
[2021-03-28] MEDS: CALCIUM 600MG + VIT D 400 IU TAB PO SCH (09:06)
[2021-03-28] MEDS: ASPIRIN 81 MG ECTAB PO SCH (09:06)
[2021-03-28] MEDS: CHOLECALCIFEROL 1,000 UNITS 25 MCG TAB PO SCH (09:07)
[2021-03-28] MEDS: MULTIVITAMIN TAB PO SCH (09:09)
[2021-03-28] MEDS: MAGNESIUM OXIDE 400 MG TAB PO SCH (09:09)
[2021-03-28] MEDS: DOCUSATE SODIUM 100 MG CAP PO SCH (09:09)
== END 2021-03-28 15:02 | disposition home health service (06) ==
LOC: 3E 05:17 → ASU 05:17

== ENCOUNTER 2023-03-31 21:40 | Observation (INO) ==
[2023-03-31 22:38] LABS: Basophils # (auto) 0.02 K/uL (0-0.2); Basophils % (auto) 0.3 %; Eosinophils # (auto) 0.11 K/uL (0-0.50); Eosinophils % (auto) 1.7 %; Hematocrit (blood only) 35.8 % (37.0-47.0); Hemoglobin 11.8 g/dl (12.0-16.0); Immature Granulocytes # (auto) 0.02 K/uL (0.01-0.20); Immature Granulocytes % (auto) 0.3 %; Lymphocytes # (auto) 1.71 K/uL (1.2-3.4); Lymphocytes % (auto) 26.3 %; Mean Corpuscular Hemoglobin 26.8 pg (25.0-34.0); Mean Corpuscular Volume 81.4 fL (80.0-100.0); Mean Platelet Volume 10.7 fL (9.4-12.4); Monocytes # (auto) 0.59 K/uL (0.11-0.59); Monocytes % (auto) 9.1 %; Neutrophils # (auto) 4.06 K/uL (1.40-6.50); Neutrophils % (auto) 62.3 %; Platelet Count 350 K/uL (130-400); RDW Coefficient of Variation 21.1 % (11.5-14.5); RDW Standard Deviation 61.2 fL (36.4-46.3); White Blood Count 6.51 K/ul (4.8-10.8)
[2023-03-31 23:01] LABS: Anisocytosis Present
[2023-03-31 23:03] LABS: Albumin Globulin Ratio 1.7 (0.9-2); Albumin Level 4.6 gm/dl (3.4-5.0); BUN Creatinine Ratio 24.1 (10-20); Bilirubin,Total 0.3 mg/dl (0.2-1.0); Calcium 9.7 mg/dl (8.6-10.3); Creatinine Clr Calc Pharmacy 59.5 ml/min; Est GFR (African American) 91.7 ml/min; Est GFR (Non-African American) 79.1 ml/min; Globulin 2.7 gm/dl (2.5-4.0); Total Protein 7.3 gm/dl (6.0-8.3); Troponin I High Sensitivity 5.1 pg/ml (0-14)
[2023-03-31] MEDS ORDERED: ASPIRIN CHEW 324 MG PO STA (23:03)
[2023-03-31 23:04] LABS: Potassium 4.5 mmol/L (3.5-5.1)
--- NOTE | 2023-03-31 23:08 | Emergency Department Note ---
History of Present Illness General Chief complaint: Chest Pain Stated complaint: CHEST PAIN TO BACK,LEFT ARM ACHES Time Seen by Provider: 03/31/23 22:19 History of Present Illness Maximum Pain Intensity: 2 63-year-old female presents emergency department she had an onset of sharp chest pain that was on the right side of her chest that was sharp in nature. Patient denies any shortness of breath. Patient states that it went away after 5 minutes however when she was going to bed approximately an hour ago she had left-sided substernal chest pressure that radiated down her left arm. Patient denies any cough cold congestion denies hemoptysis denies abdominal pain denies nausea. There are no other mitigating or alleviating factors Home Medications Medication Instructions Recorded Confirmed Type ascorbic acid (vitamin C) 500 mg 500 mg PO QAM 07/20/20 03/31/23 History tablet multivitamin 1 tab PO QAM 07/20/20 03/31/23 History estradiol 0.01% (0.1 mg/gram) 1 g vaginal 2XWK #42.5 grams 02/16/23 03/31/23 Rx vaginal cream (Estrace) cholecalciferol (vitamin D3) 50 50 mcg PO DAILY 03/31/23 03/31/23 History mcg (2,000 unit) capsule (Vitamin D3) ferrous sulfate 325 mg (65 mg 325 mg PO DAILY 03/31/23 03/31/23 History iron) tablet (iron) Allergies Allergy/AdvReac Type Severity Reaction Status Date / Time No Known Allergies Allergy Verified 03/31/23 23:05 Past Med/Surg History Medical History Anemia Arthritis Burning sensation BURNING SENSATION INTERNAL BELOW RIB CAGE AREA/RIGHT SIDE - REASON FOR UPCOMING PROCEDURE PT HAD HX CYSTO SEP 26 - DX WITH SCAR TISSUE BURNING SENSATION HAS LESSENED Burning sensation BURNING OUTSIDE VAGINAL AREA STARTED SEP 15 2022 - STARTING TO FEEL BETTER HAD URINE CX DONE ON SEP 15 2022 - [place] ...HX CYSTOSCOPY BURINGING OUTSIDE VAGINAL AREA HAS RESOLVED Encounter for pre-operative examination Flank pain AUG 03 2022 RECEIVED FLU SHOT... 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 Sanchez Lumbosacral radiculopathy Nausea and vomiting after administration of anesthetic agent HX WITH MOST RECENT CYSTOSCOPY SEP 2022 Postmenopausal Postmenopausal atrophic vaginitis Prediabetes Diet controlled (hgba1c 6.0% 06/12/21) Thyroid nodule "Benign" Toenail torn away IMPAIRED TOENAIL INTEGRITY / PT HAD PEDICURE AND IT WAS SUGGESTED TO MENTION THIS FINDING TO DRRachael SENT FOR CULTURE AND DX WITH TOENAIL FUNGUS. PRESCRIBED DROPS FOR. Surgical History History of colonoscopy History of cystoscopy SEP 26 2021/STENT PLACEMENT AND SINCE REMOVED DX WITH SCAR TISSUE History of left hip replacement History of right hip replacement S/P tubal ligation [place] teeth extracted Family History Son Anxiety Depression Father Stroke Hypertension Heart disease Mother Diabetes Hypertension Heart disease Sister Endometriosis Parkinsonian syndrome Other Dyslipidemia Denies family history of Ovarian cancer Prostate cancer Myocardial infarction Breast cancer Colorectal cancer Social History Smoking Status: Never smoker Second Hand Exposure: No; Do You Dip or Chew Tobacco: No; Hx Alcohol Use: No Hx Substance Use: No Preferred Language: Lithuanian Communication Ability: Effective Visual Impairment: No Limitations Hearing Ability: Normal Train Planner Required: No Beliefs That Will Affect Care: None marital status: Current Living Situation: Family Current Living Situation Comment: SON current occupational status: employed 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 Feels Safe at Home: Yes Childhood Exposure to Second-Hand Smoke: No Diet: regular Dental Care, Regularly: Yes Physical Activity Frequency: Daily Seatbelt Use: always Sunscreen Use: Yes Assistive Devices: Glasses Review of Systems A total of 10 systems reviewed and were otherwise negative Cardiovascular: + chest pain Physical Exam Vital Signs Vital Signs - 24 hr 03/31/23 21:45 03/31/23 22:19 03/31/23 22:19 Temperature 36.8 C Temperature Source Temporal Artery Scan Pulse Rate 80 Pulse Rate [Right Apical] 71 Respiratory Rate 18 16 Respiratory Effort / Characteristics Non-Labored Non-Labored Spontaneous Respiratory Depth Normal Normal Respiratory Pattern Regular Blood Pressure 145/95 H Blood Pressure [Right Arm] 126/84 Blood Pressure Mean 111 Blood Pressure Mean [Right Arm] 98 Pulse Oximetry 98 97 97 Oxygen Delivery Method Room Air Room Air Sepsis Recent Fever Within 48 Hours No Sepsis New/Unexplained Change in Mental Status No Sepsis Action Taken by Nursing No Action Required 03/31/23 22:31 03/31/23 23:00 Temperature Temperature Source Pulse Rate 73 81 Pulse Rate [Right Apical] Respiratory Rate 16 Respiratory Effort / Characteristics Respiratory Depth Respiratory Pattern Blood Pressure 131/91 Blood Pressure [Right Arm] Blood Pressure Mean 104 Blood Pressure Mean [Right Arm] Pulse Oximetry 96 Oxygen Delivery Method Room Air Sepsis Recent Fever Within 48 Hours Sepsis New/Unexplained Change in Mental Status Sepsis Action Taken by Nursing GENERAL: Patient is awake alert in no acute distress patient is resting comfortably and showing no signs of anxiety EYES: The conjunctivae are clear. The pupils are round and reactive. EARS, NOSE, MOUTH AND THROAT: The nose is without any evidence of any deformity. Mucous membranes are moist. Tongue is midline. NECK: The neck is nontender and supple. RESPIRATORY: Normal respiratory effort is noted there is no evidence of wheezing rhonchi or rales CARDIOVASCULAR: Regular rate and rhythm noted there no murmurs rubs or gallops normal S1 normal S2. GASTROINTESTINAL: The abdomen is soft. Abdomen is nontender. BACK: No midline tenderness or or step-off noted range of motion in flexion extension as well as rotation no signs of muscle spasm noted MUSCULOSKELETAL/EXTREMITIES: There is no evidence of gross deformity full range of motion is noted in the hips and shoulders. SKIN: There is no obvious evidence of any rash. There are no petechiae, pallor or cyanosis noted. NEUROLOGIC: Patient is awake alert and oriented x3 strength is symmetric Course Administered Medications Discontinued Medications Aspirin (Aspirin Chew 324 Mg) 324 mg PO NOW STA Stop: 03/31/23 23:04 Last Admin: 03/31/23 23:32 Dose: 324 mg Documented By: OSCAR Ioversol (Optiray 320 125ml) 125 ml IV ONCE ONE Stop: 04/01/23 00:18 Last Admin: 04/01/23 00:17 Dose: 114 ml Documented By: JESSICA Medical Decision Making Medical Records Attestation: I reviewed the patient's medical records. Home Medications Current Medication List: was personally reviewed by me Laboratory Data Attestation: I reviewed the patient's lab results. Lab work interpreted by me elevated D-dimer, normal troponin 03/31/23 21:54 03/31/23 21:54 Lab Results 07/18/23 07/18/23 07/18/23 Range/Units 21:54 21:54 21:54 WBC 6.51 (4.8-10.8) K/ul RBC 4.40 (4.20-5.40) M/uL Hgb 11.8 L (12.0-16.0) g/dl Hct 35.8 L (37.0-47.0) % MCV 81.4 (80.0-100.0) fL MCH 26.8 (25.0-34.0) pg MCHC 33.0 (32.0-36.0) g/dL RDW Std Deviation 61.2 H (36.4-46.3) fL RDW Coeff of Silvia 21.1 H (11.5-14.5) % Plt Count 350 (130-400) K/uL MPV 10.7 (9.4-12.4) fL Immature Gran % (Auto) 0.3 % Neut % (Auto) 62.3 % Lymph % (Auto) 26.3 % [place] % (Auto) 9.1 % Eos % (Auto) 1.7 % Baso % (Auto) 0.3 % Neut # (Auto) 4.06 (1.40-6.50) K/uL Lymph # (Auto) 1.71 (1.2-3.4) K/uL [place] # (Auto) 0.59 (0.11-0.59) K/uL Eos # (Auto) 0.11 (0-0.50) K/uL Baso # (Auto) 0.02 (0-0.2) K/uL Immature Gran # (Auto) 0.02 (0.01-0.20) K/uL Anisocytosis Present PT 10.3 (9.0-12.0) Seconds INR 0.9 (0.9-1.1) APTT 28.3 (21.0-31.0) Seconds PTT Ratio 1.0 D-Dimer (0-500) ug/L FEU Sodium 137 (136-145) mmol/L Potassium 4.5 (3.5-5.1) mmol/L Chloride 103 (98-107) mmol/L Carbon Dioxide 26 (21-32) mmol/L Anion Gap 8 (3-11) BUN 19 (6-23) mg/dl Creatinine 0.79 (0.6-1.2) mg/dl Est Cr Clr Drug Dosing 59.5 ml/min Est GFR ( Amer) 91.7 ml/min Est GFR (Non-Af Amer) 79.1 ml/min BUN/Creatinine Ratio 24.1 H (10-20) Glucose 108 H (70-99(Fasting)) mg/dl Calcium 9.7 (8.6-10.3) mg/dl Total Bilirubin 0.3 (0.2-1.0) mg/dl AST 25 (13-39) U/L ALT 13 (7-52) U/L Alkaline Phosphatase 68 (34-104) U/L Troponin I High Sens 5.1 (0-14) pg/ml Total Protein 7.3 (6.0-8.3) gm/dl Albumin 4.6 (3.4-5.0) gm/dl Globulin 2.7 (2.5-4.0) gm/dl Albumin/Globulin Ratio 1.7 (0.9-2) SARS-CoV-2, RNA, NAAT (NEGATIVE) 03/31/23 03/31/23 Range/Units 22:21 23:20 WBC (4.8-10.8) K/ul RBC (4.20-5.40) M/uL Hgb (12.0-16.0) g/dl Hct (37.0-47.0) % MCV (80.0-100.0) fL MCH (25.0-34.0) pg MCHC (32.0-36.0) g/dL RDW Std Deviation (36.4-46.3) fL RDW Coeff of Silvia (11.5-14.5) % Plt Count (130-400) K/uL MPV (9.4-12.4) fL Immature Gran % (Auto) % Neut % (Auto) % Lymph % (Auto) % [place] % (Auto) % Eos % (Auto) % Baso % (Auto) % Neut # (Auto) (1.40-6.50) K/uL Lymph # (Auto) (1.2-3.4) K/uL [place] # (Auto) (0.11-0.59) K/uL Eos # (Auto) (0-0.50) K/uL Baso # (Auto) (0-0.2) K/uL Immature Gran # (Auto) (0.01-0.20) K/uL Anisocytosis PT (9.0-12.0) Seconds INR (0.9-1.1) APTT (21.0-31.0) Seconds PTT Ratio D-Dimer 640 H* (0-500) ug/L FEU Sodium (136-145) mmol/L Potassium (3.5-5.1) mmol/L Chloride (98-107) mmol/L Carbon Dioxide (21-32) mmol/L Anion Gap (3-11) BUN (6-23) mg/dl Creatinine (0.6-1.2) mg/dl Est Cr Clr Drug Dosing ml/min Est GFR ( Amer) ml/min Est GFR (Non-Af Amer) ml/min BUN/Creatinine Ratio (10-20) Glucose (70-99(Fasting)) mg/dl Calcium (8.6-10.3) mg/dl Total Bilirubin (0.2-1.0) mg/dl AST (13-39) U/L ALT (7-52) U/L Alkaline Phosphatase (34-104) U/L Troponin I High Sens (0-14) pg/ml Total Protein (6.0-8.3) gm/dl Albumin (3.4-5.0) gm/dl Globulin (2.5-4.0) gm/dl Albumin/Globulin Ratio (0.9-2) SARS-CoV-2, RNA, NAAT NEGATIVE (NEGATIVE) Imaging Data Attestation: I personally reviewed and interpreted this imaging study as follows: My Impression: Chest x-ray interpreted by me negative for infiltrate CT chest interpreted by me negative for infiltrate or pneumothorax Radiologist's Impression: Chest CTA 03/31/23 23:46 Exam(s): CTA CHEST IV Amt: 114 ML OPTIRAY 320 EXAM: CT Angiography Chest With Intravenous Contrast CLINICAL HISTORY: Reason for exam: PE. TECHNIQUE: Axial computed tomographic angiography images of the chest with intravenous contrast. CTDI is 26 mGy and DLP is 317.91 mGy-cm. Automated exposure control was utilized for the study. A dose lowering technique was utilized adhering to the principles of ALARA. MIP reconstructed images were created and reviewed. COMPARISON: No relevant prior studies available. FINDINGS: Pulmonary arteries: Unremarkable. No pulmonary embolism. Aorta: No acute findings. No thoracic aortic aneurysm. Lungs: Unremarkable. No mass. No consolidation. Pleural space: Unremarkable. No significant effusion. No pneumothorax. Heart: Unremarkable. No cardiomegaly. No significant pericardial effusion. No evidence of RV dysfunction. Bones/joints: No acute fracture. No dislocation. Soft tissues: Unremarkable. Lymph nodes: Unremarkable. No enlarged lymph nodes. IMPRESSION: No evidence of pulmonary emboli or acute cardiopulmonary process. Electronically signed by: Keyur Chao MD 04/01/23 01:06 AM ECG Data Attestation: I personally reviewed and interpreted this ECG as follows: Additional Comments: EKG interpreted by me, normal sinus rhythm rate of 76 normal intervals normal axis no obvious ST segment elevation or depression Telemetry was ordered by me, interpreted normal sinus rhythm rate of 74 MDM Narrative Medical decision making differential diagnosis includes angina, unstable angina, acute coronary syndrome, acute OH, GERD, costochondritis Plan is to check labs, EKG, chest x-ray Impression & Plan Chest pain Discharge Plan Visit Data Chief Complaint: Chest Pain Stated Complaint: CHEST PAIN TO BACK,LEFT ARM ACHES ED Provider: Karson Parr Discharge Problem: Chest pain Patient Disposition: Admitted As Inpatient Forms Stand Alone Forms: My [facility] Prescriptions Prescriptions: No Action multivitamin Tablet 1 tab PO QAM Patient Comments: haven't been taking ascorbic acid (vitamin C) 500 mg tablet 500 mg PO QAM Patient Comments: not for last couple months but planning to start estradiol [Estrace] 0.01 % (0.1 mg/gram) cream 1 g vaginal 2XWK Qty: 42.5 3RF Patient Comments: have never really used...planning to Rx Instructions: PER PT "HAVE NEVER USED". ferrous sulfate [iron] 325 mg (65 mg iron) Tablet 325 mg PO DAILY cholecalciferol (vitamin D3) [Vitamin D3] 50 mcg (2,000 unit) Capsule 50 mcg PO DAILY Referrals Referrals: Kelly Mahan MD [Primary Care Provider] -
[2023-03-31 23:36] LABS: INR 0.9 (0.9-1.1); Partial Thromboplastin Time 28.3 Seconds (21.0-31.0); Prothrombin Time 10.3 Seconds (9.0-12.0)
[2023-03-31 23:52] LABS: D Dimer 640 ug/L FEU (0-500)
[2023-04-01] MEDS ORDERED: OPTIRAY 320 125ml IV ONE (00:17)
--- NOTE | 2023-04-01 01:07 | CT Scan Report ---
Exam(s): CTA CHEST IV Amt: 114 ML OPTIRAY 320 EXAM: CT Angiography Chest With Intravenous Contrast CLINICAL HISTORY: Reason for exam: PE. TECHNIQUE: Axial computed tomographic angiography images of the chest with intravenous contrast. CTDI is 26 mGy and DLP is 317.91 mGy-cm. Automated exposure control was utilized for the study. A dose lowering technique was utilized adhering to the principles of ALARA. MIP reconstructed images were created and reviewed. COMPARISON: No relevant prior studies available. FINDINGS: Pulmonary arteries: Unremarkable. No pulmonary embolism. Aorta: No acute findings. No thoracic aortic aneurysm. Lungs: Unremarkable. No mass. No consolidation. Pleural space: Unremarkable. No significant effusion. No pneumothorax. Heart: Unremarkable. No cardiomegaly. No significant pericardial effusion. No evidence of RV dysfunction. Bones/joints: No acute fracture. No dislocation. Soft tissues: Unremarkable. Lymph nodes: Unremarkable. No enlarged lymph nodes. IMPRESSION: No evidence of pulmonary emboli or acute cardiopulmonary process. Electronically signed by: Keyur Chao MD 04/01/23 01:06 AM
--- NOTE | 2023-04-01 02:30 | History & Physical Report ---
Date of Service April 01, 2023 Assessment & Plan (1) Chest pain radiating to arm: (2) Chest pain radiating to jaw: (3) Idiopathic polyneuropathy: (4) Numbness and tingling of both feet: (5) Prediabetes: Plan Chest pain radiating to left arm/radiating to left side of neck and jaw- The patient will be admitted to telemetry for serial cardiac enzymes, serial EKG's, cardiac rhythm monitoring and a 2-D echocardiogram with Dopplers. Given aspirin 324 mg in ED, will continue 81 mg every morning No further episodes of discomfort while in the ED and normal troponin of 5.1 EKG without acute changes CT angiography negative for PE. D-dimer was elevated at 640 Check a fasting lipid panel and hemoglobin A1c If work-up is otherwise negative will need a stress echocardiogram prior to discharge History of Present Illness Chief Complaint: The patient presents to the emergency department with acute onset of sharp substernal and parasternal chest discomfort, that went away spontaneously after 5 minutes, but later on in the evening, about 1 hour prior to arrival in the emergency department, had recurred as left-sided substernal chest pressure with abnormal sensation in her left arm and left neck toward jaw. That pain also resolved spontaneously, however, due to its recurrence, she decided come to the ED for assessment Primary Care Provider: Kelly Mahan MD The patient is a 63-year-old female with a past medical history including lumbosacral radiculopathy, idiopathic polyneuropathy, bilateral hip joint arthritis, vitamin D deficiency, vitamin B12 deficiency, thyroid nodule, prediabetes and osteoporosis. Patient presents with chest pain as noted above. While in the emergency department she had no additional recurrences. She was given aspirin 324 mg by the ED. CTA chest was negative for PE, and EKG showed no acute findings. Significant laboratories: D-dimer 640, troponin 5.1 Allergies Allergy/AdvReac Type Severity Reaction Status Date / Time No Known Allergies Allergy Verified 03/31/23 23:05 Home Medications Medication Instructions Recorded Confirmed Type ascorbic acid (vitamin C) 500 mg 500 mg PO QAM 07/20/20 03/31/23 History tablet multivitamin 1 tab PO QAM 07/20/20 03/31/23 History estradiol 0.01% (0.1 mg/gram) 1 g vaginal 2XWK #42.5 grams 02/16/23 03/31/23 Rx vaginal cream (Estrace) cholecalciferol (vitamin D3) 50 50 mcg PO DAILY 03/31/23 03/31/23 History mcg (2,000 unit) capsule (Vitamin D3) ferrous sulfate 325 mg (65 mg 325 mg PO DAILY 03/31/23 03/31/23 History iron) tablet (iron) Past Med/Surg History Medical History Anemia Arthritis Burning sensation BURNING SENSATION INTERNAL BELOW RIB CAGE AREA/RIGHT SIDE - REASON FOR UPCOMING PROCEDURE PT HAD HX CYSTO SEP 26 - DX WITH SCAR TISSUE BURNING SENSATION HAS LESSENED Burning sensation BURNING OUTSIDE VAGINAL AREA STARTED SEP 15 2022 - STARTING TO FEEL BETTER HAD URINE CX DONE ON SEP 15 2022 - [place] ...HX CYSTOSCOPY BURINGING OUTSIDE VAGINAL AREA HAS RESOLVED Encounter for pre-operative examination Flank pain AUG 03 2022 RECEIVED FLU SHOT... 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 Sanchez Lumbosacral radiculopathy Nausea and vomiting after administration of anesthetic agent HX WITH MOST RECENT CYSTOSCOPY SEP 2022 Postmenopausal Postmenopausal atrophic vaginitis Prediabetes Diet controlled (hgba1c 6.0% 06/12/21) Thyroid nodule "Benign" Toenail torn away IMPAIRED TOENAIL INTEGRITY / PT HAD PEDICURE AND IT WAS SUGGESTED TO MENTION THIS FINDING TO DRRachael SENT FOR CULTURE AND DX WITH TOENAIL FUNGUS. PRESCRIBED DROPS FOR. Surgical History History of colonoscopy History of cystoscopy SEP 26 2021/STENT PLACEMENT AND SINCE REMOVED DX WITH SCAR TISSUE History of left hip replacement History of right hip replacement S/P tubal ligation [place] teeth extracted Family History Son Anxiety Depression Father Stroke Hypertension Heart disease Mother Diabetes Hypertension Heart disease Sister Endometriosis Parkinsonian syndrome Other Dyslipidemia Denies family history of Ovarian cancer Prostate cancer Myocardial infarction Breast cancer Colorectal cancer Social History Smoking Status: Never smoker Second Hand Exposure: No; Do You Dip or Chew Tobacco: No; Hx Alcohol Use: Yes Alcohol type: wine Alcohol Intake Frequency: Monthly or Less Hx Substance Use: No Preferred Language: Kazakh Communication Ability: Effective Visual Impairment: No Limitations Hearing Ability: Normal Plastics Technician Required: No Beliefs That Will Affect Care: None marital status: Current Living Situation: Family Current Living Situation Comment: Home w/ son current occupational status: employed 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 Feels Safe at Home: Yes Safety Concerns: Feels Safe At This Time Childhood Exposure to Second-Hand Smoke: No Diet: regular Dental Care, Regularly: Yes Physical Activity Frequency: Daily Seatbelt Use: always Sunscreen Use: Yes Assistive Devices: Glasses Review of Systems Review of Systems: The patient denies palpitations, cough, lower extremity swelling, sore throat, fevers, chills, sweats, nausea, vomiting, diarrhea , constipation, abdominal pain, pelvic pain, blood in urine or stool, dysuria, urinary frequency or urgency, lightheadedness, dizziness, headache, memory loss, loss of consciousness, rash, abnormal bruising or bleeding, imbalance, focal or generalized weakness, numbness or tingling in right arm or bilateral legs, generalized arthralgias or myalgias, back pain, or night sweats. The review of systems is otherwise negative other than for that already noted above, and at least 10 systems have been reviewed. Physical Exam Physical Exam: The patient is awake, alert and oriented 3, well developed and well nourished, normocephalic and atraumatic, lying in bed and in no acute distress. HEENT--PERRL, EOMI, mucous membranes and oropharynx normal. Neck--supple. No JVD. No bruits. Thyroid normal, trachea midline, no a denopathy. Heart--normal S1 and S2. No murmurs, rubs or gallops. Lungs--clear bilaterally, no respiratory distress, no accessory muscle use. Abdomen--normal bowel sounds and soft. Nontender. Nondistended, no hernias or masses, no organomegaly. Extremities--no cyanosis or clubbing. No edema. There are good distal pulses b/l. Dermatologic--normal skin turgor, normal color, no abnormal lymph nodes, no rash. Neurologic--cranial nerves II through XII grossly intact. Rheumatologic--normal range of motion. Psychiatric--normal affect. Results & Data Results & Data Vital Signs (Past 12 Hours) Vital Signs Temp Pulse Pulse Resp BP BP Pulse Ox 04/01/23 02:00 70 18 146/106 H 96 04/01/23 01:30 73 18 124/84 96 03/31/23 23:00 81 16 131/91 96 03/31/23 22:31 73 03/31/23 22:19 71 16 126/84 97 03/31/23 22:19 97 03/31/23 21:45 36.8 C 80 18 145/95 H 98 O2 Del Method 04/01/23 02:00 Room Air 04/01/23 01:30 Room Air 03/31/23 23:00 Room Air 03/31/23 22:31 03/31/23 22:19 Room Air 03/31/23 22:19 Room Air 03/31/23 21:45 Laboratory Results Laboratory Results WBC 6.51 K/ul (4.8-10.8) 03/31/23 21:54 RBC 4.40 M/uL (4.20-5.40) 03/31/23 21:54 Hgb 11.8 g/dl (12.0-16.0) L 03/31/23 21:54 Hct 35.8 % (37.0-47.0) L 03/31/23 21:54 MCV 81.4 fL (80.0-100.0) 03/31/23 21:54 MCH 26.8 pg (25.0-34.0) 03/31/23 21:54 MCHC 33.0 g/dL (32.0-36.0) 03/31/23 21:54 RDW Std Deviation 61.2 fL (36.4-46.3) H 03/31/23 21:54 RDW Coeff of Silvia 21.1 % (11.5-14.5) H 03/31/23 21:54 Plt Count 350 K/uL (130-400) 03/31/23 21:54 MPV 10.7 fL (9.4-12.4) 03/31/23 21:54 Immature Gran % (Auto) 0.3 % 03/31/23 21:54 Neut % (Auto) 62.3 % 03/31/23 21:54 Lymph % (Auto) 26.3 % 03/31/23 21:54 Teller % (Auto) 9.1 % 03/31/23 21:54 Eos % (Auto) 1.7 % 03/31/23 21:54 Baso % (Auto) 0.3 % 03/31/23 21:54 Neut # (Auto) 4.06 K/uL (1.40-6.50) 03/31/23 21:54 Lymph # (Auto) 1.71 K/uL (1.2-3.4) 03/31/23 21:54 Teller # (Auto) 0.59 K/uL (0.11-0.59) 03/31/23 21:54 Eos # (Auto) 0.11 K/uL (0-0.50) 03/31/23 21:54 Baso # (Auto) 0.02 K/uL (0-0.2) 03/31/23 21:54 Immature Gran # (Auto) 0.02 K/uL (0.01-0.20) 03/31/23 21:54 Anisocytosis Present 03/31/23 21:54 PT 10.3 Seconds (9.0-12.0) 03/31/23 21:54 INR 0.9 (0.9-1.1) 03/31/23 21:54 APTT 28.3 Seconds (21.0-31.0) 03/31/23 21:54 PTT Ratio 1.0 03/31/23 21:54 D-Dimer 640 ug/L FEU (0-500) H* 03/31/23 22:21 Sodium 137 mmol/L (136-145) 03/31/23 21:54 Potassium 4.5 mmol/L (3.5-5.1) 03/31/23 21:54 Chloride 103 mmol/L (98-107) 03/31/23 21:54 Carbon Dioxide 26 mmol/L (21-32) 03/31/23 21:54 Anion Gap 8 (3-11) 03/31/23 21:54 BUN 19 mg/dl (6-23) 03/31/23 21:54 Creatinine 0.79 mg/dl (0.6-1.2) 03/31/23 21:54 Est Cr Clr Drug Dosing 59.5 ml/min 03/31/23 21:54 Est GFR ( Amer) 91.7 ml/min 03/31/23 21:54 Est GFR (Non-Af Amer) 79.1 ml/min 03/31/23 21:54 BUN/Creatinine Ratio 24.1 (10-20) H 03/31/23 21:54 Glucose 108 mg/dl (70-99(Fasting)) H 03/31/23 21:54 Calcium 9.7 mg/dl (8.6-10.3) 03/31/23 21:54 Total Bilirubin 0.3 mg/dl (0.2-1.0) 03/31/23 21:54 AST 25 U/L (13-39) 03/31/23 21:54 ALT 13 U/L (7-52) 03/31/23 21:54 Alkaline Phosphatase 68 U/L (34-104) 03/31/23 21:54 Troponin I High Sens 5.1 pg/ml (0-14) 03/31/23 21:54 Total Protein 7.3 gm/dl (6.0-8.3) 03/31/23 21:54 Albumin 4.6 gm/dl (3.4-5.0) 03/31/23 21:54 Globulin 2.7 gm/dl (2.5-4.0) 03/31/23 21:54 Albumin/Globulin Ratio 1.7 (0.9-2) 03/31/23 21:54 SARS-CoV-2, RNA, NAAT NEGATIVE (NEGATIVE) 03/31/23 23:20 Impressions Chest CTA 03/31/23 23:46 Exam(s): CTA CHEST IV Amt: 114 ML OPTIRAY 320 EXAM: CT Angiography Chest With Intravenous Contrast CLINICAL HISTORY: Reason for exam: PE. TECHNIQUE: Axial computed tomographic angiography images of the chest with intravenous contrast. CTDI is 26 mGy and DLP is 317.91 mGy-cm. Automated exposure control was utilized for the study. A dose lowering technique was utilized adhering to the principles of ALARA. MIP reconstructed images were created and reviewed. COMPARISON: No relevant prior studies available. FINDINGS: Pulmonary arteries: Unremarkable. No pulmonary embolism. Aorta: No acute findings. No thoracic aortic aneurysm. Lungs: Unremarkable. No mass. No consolidation. Pleural space: Unremarkable. No significant effusion. No pneumothorax. Heart: Unremarkable. No cardiomegaly. No significant pericardial effusion. No evidence of RV dysfunction. Bones/joints: No acute fracture. No dislocation. Soft tissues: Unremarkable. Lymph nodes: Unremarkable. No enlarged lymph nodes. IMPRESSION: No evidence of pulmonary emboli or acute cardiopulmonary process. Electronically signed by: Keyur Chao MD 04/01/23 01:06 AM none Code Status & VTE Plan Code Status Full code VTE Prophylaxis Plan VTE Prophylaxis will be ordered: Yes PG Care Time/CCT Total # of Minutes Spent Total Time Spent with Patient: Total time spent is greater than 50% in coordination of care (as documented) at patient's floor/unit and/or counseling patient: Coding Level of Care Code 93720 INT INP/OBS CARE 3/75MIN Diagnoses Chest pain radiating to arm R07.89 Chest pain radiating to jaw R07.9 Idiopathic polyneuropathy G60.9 Numbness and tingling of both feet R20.0; R20.2 Prediabetes R73.03
[2023-04-01] MEDS ORDERED: ACETAMINOPHEN 325 MG TAB PO PRN (04:21)
[2023-04-01] MEDS ORDERED: ONDANSETRON INJ 2 MG/ML 2 ML VIAL IV PRN (04:21)
[2023-04-01] MEDS ORDERED: NON-FORMULARY MEDICATION (Estradiol [Estrace] 0.01 % (0.1 mg/gram) cream) PV SCH (04:21)
[2023-04-01 06:20] LABS: Chol HDL Ratio 2.9 (0-5)
[2023-04-01 06:25] LABS: Troponin I High Sensitivity 3.3 pg/ml (0-14)
--- NOTE | 2023-04-01 07:47 | XRay Report ---
XR chest 1V not portable CLINICAL HISTORY: Chest pain, nonspecific COMPARISON STUDY: Chest radiograph September 15, 2022. FINDINGS: Lung volumes are normal. Lungs are clear. There is no pneumothorax or pleural effusion. Car diac size is normal. Mediastinal contours are normal. There is no evidence for pulmonary edema. IMPRESSION: No acute cardiopulmonary findings. ACT 112: Negative or not required by law. Electronically signed by: Savage Leyva M.D. 04/01/2023 7:46 AM
[2023-04-01 08:12] LABS: Estimated Average Glucose 123 mg/dl; Hemoglobin A1C 5.9 % (4.5-5.6)
[2023-04-01] MEDS ORDERED: MULTIVITAMIN TAB PO SCH (09:00)
[2023-04-01] MEDS ORDERED: FERROUS SULFATE 325 MG TAB PO SCH (09:00)
[2023-04-01] MEDS ORDERED: CHOLECALCIFEROL 1,000 UNITS 25 MCG TAB PO SCH (09:00)
[2023-04-01] MEDS ORDERED: ASPIRIN 81 MG ECTAB PO SCH (09:00)
[2023-04-01] MEDS ORDERED: ASCORBIC ACID 500 MG TAB PO SCH (09:00)
--- NOTE | 2023-04-01 13:54 | XCELERA ---
[id number] \\[email or web address]_PDF_[email or web address]\[id number]___[id number]
--- NOTE | 2023-04-01 13:54 | XCELERA ---
[id number] \\[email or web address]_PDF_Reports\[id number]___[id number]
--- NOTE | 2023-04-01 14:50 | Electrocardiogram Report ---
Test Reason : Blood Pressure : / mmHG Vent. Rate : 076 BPM Atrial Rate : 076 BPM P-R Int : 152 ms QRS Dur : 082 ms QT Int : 386 ms P-R-T Axes : 071 056 054 degrees QTc Int : 434 ms Normal sinus rhythm with sinus arrhythmia Left atrial enlargement RSR' or QR pattern in V1 suggests right ventricular conduction delay Borderline ECG When compared with ECG of 15-SEP-2022 12:26, Premature ventricular complexes are no longer Present Confirmed by Isaias Stratton ([id number]) on 04/01/2023 2:49:38 PM Referred By: REFERRED SELF Confirmed By:Isaias Stratton
--- NOTE | 2023-04-02 08:19 | Discharge Summary ---
Date of Service April 01, 2023 Admission HPI Per Admitting Provider The patient is a 63-year-old female with a past medical history including lumbosacral radiculopathy, idiopathic polyneuropathy, bilateral hip joint arthritis, vitamin D deficiency, vitamin B12 deficiency, thyroid nodule, prediabetes and osteoporosis. Patient presents with chest pain as noted above. While in the emergency department she had no additional recurrences. She was given aspirin 324 mg by the ED. CTA chest was negative for PE, and EKG showed no acute findings. Significant laboratories: D-dimer 640, troponin 5.1 Discharge Data Allergies Allergy/AdvReac Type Severity Reaction Status Date / Time No Known Allergies Allergy Verified 03/31/23 23:05 Consultations 04/01/23 01:11 ED Decision to Admit Stat Ordered Studies 03/31/23 23:46 CT angio chest PE protocol Stat Discharge Plan Discharge Items Patient Disposition: Home - Self-Care Reason For Visit: CHEST PAIN Discharge Diagnosis: chest pain Activity: Resume your previous activity Non-emergency contact: Primary Care Provider Call non-emergency contact if: you have any medication questions Follow-up/Referrals: Kelly Mahan MD [Primary Care Provider] - 04/09/23 10:15 am (Follow up scheduled 04/09/23 @ 10:15) Diet: Heart Healthy Addtl Attending Provider Instructions: Recommend followup with PCP in 2-4 weeks Pending Studies at Discharge: No Stand-Alone Forms: My [employer], Smoking Cessation Medications and DC Order Prescriptions: Continued multivitamin Tablet 1 tab PO QAM Patient Comments: haven't been taking ascorbic acid (vitamin C) 500 mg tablet 500 mg PO QAM Patient Comments: not for last couple months but planning to start estradiol [Estrace] 0.01 % (0.1 mg/gram) cream 1 g vaginal 2XWK Qty: 42.5 3RF Patient Comments: have never really used...planning to Rx Instructions: PER PT "HAVE NEVER USED". ferrous sulfate [iron] 325 mg (65 mg iron) Tablet 325 mg PO DAILY cholecalciferol (vitamin D3) [Vitamin D3] 50 mcg (2,000 unit) Capsule 50 mcg PO DAILY Discharge Orders: Discharge Order (Routine); Ordered 04/01/23 Ordered By: Dagoberto Carrizales Admission Data Admit Date/Time: 04/01/23 02:29 Attending Provider: Dagoberto Carrizales Admit Provider: Amilcar Gonzalez Primary Care Provider: Kelly Mahan Other Providers: Amilcar Gonzalez Other Interventions: Discharge Summary Assessment (RN) Last Done: 04/01/23 14:29 Coding Diagnoses
== END 2023-04-01 14:41 | disposition home or self-care (01) ==
LOC: 2S 21:40 → ED 21:40 → SUATTDRO 04-01 02:29 → 2S 04-01 03:06